=== PATIENT | female | born 1985 | race African-American/Black ===

== ENCOUNTER 2017-10-10 20:24 | Emergency (ER) | payer MEDICAID ==
[2017-10-10 20:59] LABS: BILIRUBIN,URINE NEGATIVE (NEGATIVE); PH,URINE 5.5 PH (5.0-7.5)
[2017-10-10 21:00] LABS: UA CHARGE (STRIP ONLY) YES; UR CULTURE IF IND NOT INDICATED
[2017-10-10 21:01] LABS: HCG UR QUAL POSITIVE
--- NOTE | 2017-10-10 22:15 | ED Physician Documentation ---
PD HPI FEMALE - Stated complaint Stated Complaint: ABD PAIN - Chief complaint Chief Complaint: General - History obtained from History obtained from: Patient - History of Present Illness Timing - onset: How many days ago (has had some cramping, nausea and concern for for few days to a week. Had home preg test that was positive and wants to verify it.) Timing - duration: Days Timing - details: Gradual onset, Intermittant Associated symptoms: Pelvic pain. No: Fever, Vaginal bleeding, Genital sore/ lesion, Dysuria Contributing factors: . No: Exposed to STD Recently seen: Not recently seen Review of Systems Constitutional: denies: Fever GI: reports: Nausea. denies: Vomiting, Diarrhea : reports: LMP (5 weeks ago), Missed period. denies: Dysuria, Frequency, Discharge Skin: denies: Rash, Lesions PD PAST MEDICAL HISTORY - Past Medical History Past Medical History: No - Past Surgical History Past Surgical History: No - Present Medications Home Medications: Ambulatory Orders Medication Instructions Recorded Confirmed Ondansetron HCl [Zofran] 4 mg PO Q6H PRN #20 tablet 10/10/17 Vitamin [Trinatal Rx 1] 1 each PO DAILY #90 tablet 10/10/17 - Allergies Allergies/Adverse Reactions: Allergies Allergy/AdvReac Type Severity Reaction Status Date / Time No Known Drug Allergies Allergy Verified 10/10/17 20:32 - Social History Does the pt smoke?: No Smoking Status: Never smoker Does the pt drink ETOH?: No Does the pt have substance abuse?: No - Immunizations Immunizations are current?: No Immunizations: TDAP >10years/unknown - POLST Patient has POLST: No PD ED PE NORMAL - Vitals Vital signs reviewed: Yes - General General: Alert and oriented X 3, No acute distress, Well developed/nourished - HEENT HEENT: Pharynx benign - Neck Neck: Supple, no meningeal sign, No adenopathy - Cardiac Cardiac: RRR, No murmur - Respiratory Respiratory: Clear bilaterally - Abdomen Abdomen: Normal bowel sounds, Soft, Non tender, Non distended - Female Female : Deferred, Other (bedside U/S showed IUP gestational sac at age 5 weeks. ) Results - Vitals Vitals: Oxygen O2 Source Room air - Labs Labs: Laboratory Tests 10/10/17 20:45 Urine Color YELLOW Urine Clarity CLEAR Urine pH 5.5 Ur Specific [place] >=1.030 H Urine Protein NEGATIVE Urine Glucose (UA) NEGATIVE Urine Ketones TRACE Urine Occult Blood NEGATIVE Urine Nitrite NEGATIVE Urine Bilirubin NEGATIVE Urine Urobilinogen 0.2 (NORMAL) Ur Leukocyte Esterase NEGATIVE Ur Microscopic Review NOT INDICATED Urine Culture Comments NOT INDICATED Urine HCG, Qual POSITIVE PD MEDICAL DECISION MAKING - ED course Complexity details: reviewed results, considered differential (minimal lower cramping and mainly wanting to verify . IUP seen on bedside U/S c/w dates of 5 weeks. ), d/w patient Departure - Departure Disposition: Home, Self Care Clinical Impression: Early stage of , with abdominal cramping of lower quadrant, antepartum Condition: Stable Record reviewed to determine appropriate education?: Yes Instructions: ED Preg Established Normal Sxs Follow-Up: Mary Asencio, [Provider Admit Priv/Credential] - Prescriptions: Ondansetron HCl [Zofran] 4 mg PO Q6H PRN #20 tablet PRN Reason: Nausea / Vomiting Vitamin [Trinatal Rx 1] 1 each PO DAILY #90 tablet Comments: Drink lots of fluids. Start a vitamin daily. Tylenol is okay in throughout the whole and can be used every 4 hours if needed for pains or cramps. In early ibuprofen is also okay and can be used for pains or cramps. Ondansetron if needed if you develop nausea. Call the OB clinic next week for an appointment in the next few weeks. Return if worsening pain, vaginal bleeding, fevers, other concerns. Right now your test is positive and it looks like an early in the uterus consistent with about 5 weeks though that could be a slight variation around that at this point in . Discharge Date/Time: 10/10/17 22:45
[2017-10-10] MEDS ORDERED: ACETAMINOPHEN 325 MG TABLET PO STA (22:32)
[2017-10-10 22:46] VITALS: BP 125/75
[2017-10-10] MEDS ORDERED: ACETAMINOPHEN 325 MG TABLET PO ONE (22:46)
== END 2017-10-10 22:45 | disposition home or self-care (01) ==
LOC: ED 20:24
DX: O26.891 Other specified pregnancy related conditions, first trimester (principal); R10.30 Lower abdominal pain, unspecified; Z3A.01 Less than 8 weeks gestation of pregnancy
CPT/HCPCS: 81003; 81025; 99283; A9270; 81001; 87086

== ENCOUNTER 2017-10-30 10:57 | Emergency (ER) | payer MEDICAID ==
[2017-10-30] MEDS ORDERED: ACETAMINOPHEN 325 MG TABLET PO STA (11:38)
[2017-10-30] MEDS ORDERED: FAMOTIDINE 20 MG TABLET PO STA (11:38)
[2017-10-30 11:41] LABS: UA w/ MICROSCOPIC CHARGE YES
[2017-10-30 11:42] LABS: BILIRUBIN,URINE NEGATIVE (NEGATIVE); HCG UR QUAL POSITIVE; WBC,URINE 0-3 /HPF (0-5)
[2017-10-30 11:43] LABS: UR CULTURE IF IND NOT INDICATED
--- NOTE | 2017-10-30 11:43 | ED Physician Documentation ---
History of Present Illness - Stated complaint Stated Complaint: UNABLE TO EAT/12WKS - Chief complaint Chief Complaint: Abd Pain - Additonal information Additional information: hx from pt LMP approx 11 but irreg she thinks she might be approx 12 weeks along no care yet - will be seen at [facility] 11/19 not taking prenatals homeless - staying with her mother for the time to ER with upper epigastric pain and diff eating 2/2 same and also suprapubic cramping, no bleeding or dicharge no fever NVD Review of Systems Constitutional: denies: Fever Cardiac: denies: Chest pain / pressure Respiratory: denies: Dyspnea GI: reports: Abdominal Pain. denies: Nausea, Vomiting, Diarrhea : reports: Now EGA. denies: Discharge, Vaginal bleeding PD PAST MEDICAL HISTORY - Past Surgical History Past Surgical History: No - Present Medications Home Medications: Ambulatory Orders Medication Instructions Recorded Confirmed Ondansetron HCl [Zofran] 4 mg PO Q6H PRN #20 tablet 10/10/17 10/30/17 Vitamin [Trinatal Rx 1] 1 each PO DAILY #90 tablet 10/10/17 10/30/17 Famotidine [Pepcid] 20 mg PO BID PRN #20 tablet 10/30/17 Pnv95/Ferrous Fumarate/FA 1 each PO DAILY #30 tablet 10/30/17 [Prenavite Tablet] - Allergies Allergies/Adverse Reactions: Allergies Allergy/AdvReac Type Severity Reaction Status Date / Time No Known Drug Allergies Allergy Verified 10/10/17 20:32 - Social History Does the pt smoke?: No Smoking Status: Never smoker Does the pt drink ETOH?: No Does the pt have substance abuse?: No - Immunizations Immunizations are current?: No Immunizations: TDAP >10years/unknown - POLST Patient has POLST: No PD ED PE NORMAL - Vitals Vital signs reviewed: Yes - General General: Alert and oriented X 3 - HEENT HEENT: PERRL - Neck Neck: Supple, no meningeal sign - Cardiac Cardiac: RRR - Respiratory Respiratory: No respiratory distress, Clear bilaterally - Abdomen Abdomen: Soft, Other (TTP mid epigastric, no RUQ pain neg murphys, TTP suprapubic and uterus feels nearly to umbilicus) Results - Vitals Vitals: Vital Signs - 24 hr 12/21/17 12/21/17 12/21/17 10:59 12:13 13:55 Temperature 37.0 C 36.8 C Heart Rate 79 60 73 Respiratory 17 16 16 Rate Blood Pressure 119/72 121/74 130/64 O2 Saturation 100 100 100 10/30/17 15:10 Temperature 36.7 C Heart Rate 79 Respiratory 18 Rate Blood Pressure 124/73 O2 Saturation 100 Oxygen O2 Source Room air - Labs Labs: Laboratory Tests 10/30/17 10/30/17 10/30/17 11:15 12:03 12:03 WBC 7.9 RBC 4.04 L Hgb 13.0 Hct 37.7 MCV 93.3 MCH 32.1 H MCHC 34.5 RDW 12.8 Plt Count 232 MPV 7.5 L Neut # 6.2 Lymph # 1.4 L [place] # 0.3 Eos # 0.0 Baso # 0.1 Absolute Nucleated RBC 0.00 Nucleated RBC % 0.0 Sodium 134 L Potassium 3.5 Chloride 104 Carbon Dioxide 24 Anion Gap 6.0 BUN 10 Creatinine 0.7 Estimated GFR (MDRD) 118 Glucose 88 Calcium 9.3 Total Bilirubin 1.4 H AST 17 ALT 13 Alkaline Phosphatase 22 L Total Protein 7.5 Albumin 4.3 Globulin 3.2 Albumin/Globulin Ratio 1.3 Lipase 16 L Urine Color DARK YELLOW Urine Clarity CLEAR Urine pH 6.0 Ur Specific [place] >=1.030 H Urine Protein 30 H Urine Glucose (UA) NEGATIVE Urine Ketones 15 H Urine Occult Blood NEGATIVE Urine Nitrite NEGATIVE Urine Bilirubin NEGATIVE Urine Urobilinogen 0.2 (NORMAL) Ur Leukocyte Esterase NEGATIVE Urine RBC 0-5 Urine WBC 0-3 Ur Squamous Epith Cells MOD Squamous H Urine Bacteria Few Urine Mucus Marked Strands Ur Microscopic Review INDICATED Urine Culture Comments NOT INDICATED Urine HCG, Qual POSITIVE - Rads (name of study) OB sono Radiology: See rad report (single viable IUP [id number] by CRL, 4.9 cm R ovrian cyst s torsion, small leiyomas, no FF) PD MEDICAL DECISION MAKING - ED course ED course: bili noted = pt has no RUQ pain no RUQ TTP neg murphys, serial abd exams still no ruq pain, sx improved with pepcid and pt ate a sandwish pt seen by SW as well UA high SG and + ketones gave 2 L NS pt declines a pelvic exam, just wanted the sono, denies bleeding and dc, will add on GC chlamydia to urine Departure - Departure Disposition: 01 Home, Self Care Clinical Impression: Gastritis Qualifiers: Gastritis type: unspecified gastritis Chronicity: acute Gastritis bleeding: without bleeding Qualified Code(s): K29.00 - Acute gastritis without bleeding Ovarian cyst Qualifiers: Laterality: right Qualified Code(s): N83.201 - Unspecified ovarian cyst, right side Qualifiers: Weeks of gestation: less than 8 weeks Qualified Code(s): Z3A.01 - Less than 8 weeks gestation of Condition: Good Instructions: ED Cyst Ovarian, ED Care, ED PUD Vs Gastritis Prescriptions: Famotidine [Pepcid] 20 mg PO BID PRN #20 tablet PRN Reason: stomach pain Pnv95/Ferrous Fumarate/FA [Prenavite Tablet] 1 each PO DAILY #30 tablet Comments: Your are 7 weeks Your due date is June 18 2018 The ultrasound showed a large ovarian cyst on the right side and some fibroids which are likely causing some of your pain. The cyst is big enough to potentially cause poor blood flow to the ovary so if your pain suddenly gets worse, come back to the ER The upper abdominal pain may be excess stomach acid which is common on - your exam does not suggest a gallbladder problem. Take the vitamins every day and the pepcid as needed, follow up with OB Nov 19 as scheduled, return if worse Discharge Date/Time: 10/30/17 15:20
[2017-10-30] MEDS ORDERED: SODIUM CHLORIDE 0.9% 2,000 ML IV ONE (11:46)
[2017-10-30 12:13] LABS: BASOPHILS # (AUTO) 0.1 10^3/uL (0.0-0.1); BASOPHILS % (AUTO) 0.7 %; EOSINOPHILS % (AUTO) 0.2 %; HCT - HEMATOCRIT 37.7 % (37.0-47.0); LYMPHOCYTES # (AUTO) 1.4 10^3/uL (1.5-3.5); MEAN CORPUSCULAR HEMOGLOBIN 32.1 pg (27.0-31.0); MEAN CORPUSCULAR HGB CONC 34.5 g/dL (32.0-36.0); MEAN CORPUSCULAR VOLUME 93.3 fL (81.0-99.0); MEAN PLATELET VOLUME 7.5 fL (7.9-10.8); MONOCYTES # (AUTO) 0.3 10^3/uL (0.0-1.0); MONOCYTES % (AUTO) 3.4 %; NEUTROPHILS # (AUTO) 6.2 10^3/uL (1.5-6.6); NEUTROPHILS % (AUTO) 77.7 %; RED BLOOD COUNT 4.04 10^6/uL (4.20-5.40); RED CELL DISTRIBUTION WIDTH 12.8 % (12.0-15.0); UNCORRECTED WHITE BLOOD COUNT 7.9 x10^3/uL; WHITE BLOOD COUNT 7.9 x10^3/uL (4.8-10.8)
[2017-10-30 12:24] LABS: ALBUMIN/GLOBULIN RATIO 1.3 (1.0-2.2); BILIRUBIN,TOTAL 1.4 mg/dL (0.2-1.0); CALCIUM 9.3 mg/dL (8.5-10.3); CREATININE 0.7 mg/dL (0.4-1.0); POTASSIUM 3.5 mmol/L (3.5-5.0); TOTAL PROTEIN 7.5 g/dL (6.7-8.2)
[2017-10-30 15:11] VITALS: BP 124/73
--- NOTE | 2017-11-01 15:29 | Ultrasound Report ---
FIRST TRIMESTER OB ULTRASOUND: 10/30/2017 CLINICAL INDICATION: Pelvic pain, approximately 12 weeks by LMP dating. TECHNIQUE: Real-time scanning was performed with customer service representative static images obtained. LAST MENSTRUAL PERIOD --- Clinical Age --- US Age 7 weeks 0 days EFW [place] --- EFW% [place] --- Heart Rate 144 bpm EDC --- US EDC 06/15/2018 BPD [place] --- HC [place] --- AC [place] --- FL [place] --- Presentation --- Placental Location --- Cervical Length --- Amniotic Fluid --- FINDINGS: There is a single viable intrauterine gestation. By crown rump length , it measures 7 weeks 0 days. The yolk sac is visualized. The gestational sac appears unremarkable. There are two hypoechoic leiomyomas noted in the myometrium, measuring 1.8 cm and 1.5 cm. The right ovary measures 5.7 x 4.6 x 3.8 cm, and contains a 4.9 cm cyst. Normal flow was seen to the surrounding ovarian tissue. The left ovary measures 3.0 x 2.5 x 2.2 cm, and is unremarkable. No free fluid is present. IMPRESSION: Single viable intrauterine gestation, measuring 7 weeks 0 days by crown rump length. Small intramural leiomyomas. A 4.9 cm right ovarian cyst, without evidence of torsion. TD: 10/30/2017 17:43 MTDD
== END 2017-10-30 15:20 | disposition home or self-care (01) ==
LOC: ED 10:57
DX: O99.611 Diseases of the digestive system complicating pregnancy, first trimester (principal); K29.00 Acute gastritis without bleeding; O34.81 Maternal care for other abnormalities of pelvic organs, first trimester; N83.201 Unspecified ovarian cyst, right side; Z3A.01 Less than 8 weeks gestation of pregnancy
CPT/HCPCS: 36415; 76801; 80053; 81001; 81025; 83690; 85025; 87491; 87591; 99283; A9270; 81003; 87086

== ENCOUNTER 2017-12-24 12:16 | Outpatient (CLI) | payer MEDICAID | END 2017-12-24 12:17 | disposition critical access hospital (66) | LOC: EMS 12:16 | PROVIDERS: ATTEND Surgery | DX: O99.89 Other specified diseases and conditions complicating pregnancy, childbirth and the puerperium (principal); R46.89 Other symptoms and signs involving appearance and behavior | CPT/HCPCS: A0425; A0429 ==

== ENCOUNTER 2017-12-24 12:31 | Emergency (ER) | payer MEDICAID ==
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
[2017-12-24 13:14] LABS: BASOPHILS # (AUTO) 0.1 10^3/uL (0.0-0.1); BASOPHILS % (AUTO) 0.6 %; EOSINOPHILS # (AUTO) 0.1 10^3/uL (0.0-0.7); EOSINOPHILS % (AUTO) 0.7 %; HGB - HEMOGLOBIN 13.2 g/dL (12.0-16.0); LYMPHOCYTES # (AUTO) 1.9 10^3/uL (1.5-3.5); LYMPHOCYTES % (AUTO) 22.3 %; MEAN CORPUSCULAR HEMOGLOBIN 32.2 pg (27.0-31.0); MEAN CORPUSCULAR HGB CONC 34.7 g/dL (32.0-36.0); MEAN CORPUSCULAR VOLUME 92.6 fL (81.0-99.0); MEAN PLATELET VOLUME 7.5 fL (7.9-10.8); MONOCYTES # (AUTO) 0.5 10^3/uL (0.0-1.0); MONOCYTES % (AUTO) 5.4 %; PLT - PLATELET COUNT 195 10^3/uL (130-450); RED CELL DISTRIBUTION WIDTH 13.3 % (12.0-15.0); WHITE BLOOD COUNT 8.5 x10^3/uL (4.8-10.8)
[2017-12-24 13:16] LABS: MUDS CUTOFF CONCENTRATIONS CUTOFF CONC BELOW:
[2017-12-24 13:20] LABS: BILIRUBIN,URINE NEGATIVE (NEGATIVE); GLUCOSE, URINE (UA) NEGATIVE (NEGATIVE); KETONES,URINE (UA) TRACE mg/dL (NEGATIVE); LEUKOCYTE ESTERASE, URINE NEGATIVE (NEGATIVE); NITRITE,URINE NEGATIVE (NEGATIVE); OCCULT BLOOD,URINE NEGATIVE (NEGATIVE); PROTEIN,URINE TRACE mg/dL (NEGATIVE); UROBILINOGEN,URINE 0.2 (NORMAL) E.U./dL (NORMAL)
[2017-12-24 13:21] LABS: CLARITY,URINE CLEAR (CLEAR)
[2017-12-24 13:29] LABS: AMPHETAMINE SCREEN,URINE NEGATIVE (NEGATIVE); BENZODIAZEPINES SCREEN, URINE NEGATIVE (NEGATIVE); COCAINE SCREEN URINE NEGATIVE (NEGATIVE); METHADONE SCREEN, URINE NEGATIVE (NEGATIVE); METHAMPHETAMINES SCREEN, URINE NEGATIVE (NEGATIVE); OPIATE SCREEN, URINE NEGATIVE (NEGATIVE); OXYCODONE SCREEN, URINE NEGATIVE (NEGATIVE); PROPOXYPHENE SCREEN, URINE NEGATIVE (NEGATIVE); TRICYCLIC ANTIDEPRESSANT,URINE NEGATIVE (NEGATIVE)
[2017-12-24 13:38] LABS: ALBUMIN 3.8 g/dL (3.2-5.5); ALBUMIN/GLOBULIN RATIO 1.1 (1.0-2.2); ALKALINE PHOSPHATASE 29 IU/L (42-121); ALT ALANINE AMINOTRANSFERASE 13 IU/L (10-60); AST ASPARTATE AMINOTRANSFERASE 17 IU/L (10-42); BILIRUBIN,TOTAL 0.5 mg/dL (0.2-1.0); BUN - BLOOD UREA NITROGEN 11 mg/dL (6-20); CALCIUM 9.1 mg/dL (8.5-10.3); CARBON DIOXIDE - CO2 20 mmol/L (21-32); CHLORIDE 108 mmol/L (101-111); CREATININE 0.5 mg/dL (0.4-1.0); GFR - MDRD 174 (>89); GLUCOSE 93 mg/dL (70-100); LIPASE 11 U/L (22-51); SODIUM 133 mmol/L (135-145); TOTAL PROTEIN 7.2 g/dL (6.7-8.2)
[2017-12-24 13:39] LABS: ACETAMINOPHEN < 10 ug/mL (10-30); SALICYLATE < 6.0 mg/dL
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
--- NOTE | 2017-12-24 23:49 | TELEPSYCH PHYS NOTE ---
Telepsych Note - CHIEF COMPLAINT/HX OF PRESENT ILLNESS Cheif Complaint and History of Present Illness: Chief Complaint: "I was sent here for an evaluation." HPI: The patient is a 32-year-old -J[place]ican female with a history of Schizoaffective Disorder. She is also 4 months . She was brought to the hospital yesterday after making suicidal statements and homicidal statements toward her mother. The patient was referred for admission, but she is still awaiting placement. Psychiatry was consulted to determine if inpatient treatment was still necessary. When interviewed, the patient was hyperverbal, distracted, and disorganized. She had to be redirected numerous times to answer direct questions. The patient believes that her mother is conspiring against her despite any evidence. She denied auditory, visual, or tactile hallucinations as well as suicidal thoughts. She also refused medication. When offered numerous times by the psychiatrist. She stated that she did not be medication because she "prayed." - SI/HI/SELF HARM SI/HI/SELF HARM (CURRENT OR HISTORY OF):: HI SI/HI/Self Harm Text (Current or History of):: toward mother - VIOLENCE/LEGAL/COLLATERAL Violence - Legal - Collateral: Violence: none Legal: Its a long story and not a good one. Collateral: mother is concerned for her safety if the patient is released - PSYCHIATRIC HX/TREATMENT HX Psychiatric: Bipolar disorder, Schizophrenia - MEDICAL HX Does the pt have a hx of MRSA?: No Neurological History: None Cardiovascular: None Respiratory: None Endocrine/Autoimmune: None Is Patient ?: Yes PMH Other: : Pt denied having any medical issues, h/o sz or head injuries. She is reported to be 15weeks . - HOME MEDICATIONS Home Meds (as last confirmed): vitamins - ALLERGIES Allergies (as last confirmed): Allergies Allergy/AdvReac Type Severity Reaction Status Date / Time No Known Drug Allergies Allergy Verified 12/24/17 12:36 - FAMILY PSYCH/SUICIDE/SOCIAL HX-MENTAL Family - Suicide - Social Hx and Mental Status Exam: Family Psychiatric History: none Social History: lives with mother, bro, and 18 yo Employment: unemployed Education: 11th , in GED classes Stressors: see above History: none Abuse: none Legal History: none Mental Status Examination: Attitude and behavior: cooperative Speech: wnl Affect and mood: sad affect and mood Association and thought processes: disorganized Thought content: + paranoid delusions, no SI, + HI Perception: no hallucinations Sensorium, memory, and orientation: AAOx3 Intellectual functioning: average Insight and judgment: poor - PATIENT PROBLEM LIST (1) Schizoaffective disorder, bipolar type Impression: The patient is psychotic with poor insight and refusing meds. Inpatient care is appropriate. - TREATMENT/PHARMACOLOGICAL RECOMMENDATION Treatment - Pharmacological - Therapy Recommendations: Treatment Recommendations: Start Haldol 2 mg PO BID. Continue bed search. Pharmacological: Start Haldol 2 mg PO BID Therapy: n/a Level of Care: inpatient (involuntary) - TIME SPENT & PROVIDER LOCATION Telepsych consultation conducted via videoconferencing: Yes List names and roles of persons who participated in consult: Jose Cruz Roldan MD Telepsych Provider Location: [place] Time Telepsych consult began: 01:33 Time Telepsych consult completed: 01:50
[2017-12-25] MEDS ORDERED: OLANZapine ODT 5 MG TABLET TL STA (09:27)
--- NOTE | 2017-12-25 11:50 | ED Physician Documentation ---
ED Addendum - Addendum Addendum: Patient became agitated, yelling. Responding to auditory hallucinations. Reviewed telepsych notes and given zyprexa 5mg PO. Calmed the patient well.
--- NOTE | 2017-12-25 12:43 | ED Physician Documentation ---
ED Addendum - Addendum Addendum: 12/25/17 12:42 The patient remains stable in the ER being evaluated by Michel COUCH. There is seeking placement still at this time. Tell a psych consult done last night is on the chart. 1 of the psychiatric facilities asked that we get an OB exam. I talked with Dr. Tinsley who is on for [facility]ERSON[facility] ADVIS[facility] who will come and see the patient in the ER. He directs some regular tests for me to order. Yesterday the psychiatric facility had requested a OB ultrasound which was done and normal. There are no requesting an OB exam and we will try to fulfill that. The patient is not having any abdominal pain, vaginal bleeding or spotting. The ultrasound yesterday was normal.
[2017-12-25 13:53] LABS: ALBUMIN 3.4 g/dL (3.2-5.5); ALBUMIN/GLOBULIN RATIO 1.1 (1.0-2.2); BILIRUBIN,TOTAL 0.5 mg/dL (0.2-1.0); CALCIUM 9.3 mg/dL (8.5-10.3); CREATININE 0.5 mg/dL (0.4-1.0); TOTAL PROTEIN 6.5 g/dL (6.7-8.2)
--- NOTE | 2017-12-25 14:21 | Ultrasound Report ---
LIMITED OB ULTRASOUND: 12/24/2017 CLINICAL INDICATION: , check baby, cramping. COMPARISON: 10/30/2017. TECHNIQUE: Real-time scanning was performed with food service sales representatives static images obtained. LAST MENSTRUAL PERIOD 09/11/2017 CLINICAL AGE 14 weeks 6 days US AGE 15 weeks 3 days EFW HADLOCK 124 grams EFW% HADLOCK 77% HEART RATE 159 bpm EDC 06/18/2018 US EDC 06/14/2018 BPD HADLOCK 15 weeks 4 days; Mean mm 30.3 HC HADLOCK 15 weeks 4 days; Mean mm 113.8 AC HADLOCK 15 weeks 4 days; Mean mm 94.8 FL HADLOCK 15 weeks 1 day; Mean mm 17.5 PRESENTATION variable PLACENTAL LOCATION posterior CERVICAL LENGTH TA 3.1 cm AMNIOTIC FLUID subjectively normal - MVP 3.6 cm FINDINGS There is a single viable intrauterine gestation, in variable position. heart rate is 159 BPM. The placenta is posterior. The gestational sac is regular. By size, the fetus measures 15 weeks 3 days (14 weeks 6 days by previous sonogram). Amniotic fluid volume is subjectively normal, with a deepest pocket of 3.6 cm. Two small leiomyomas are noted in the uterus, fundally measuring 3.1 cm, right lateral measuring 1.9 cm. A right ovarian corpus luteum is present. No free fluid is seen. IMPRESSION: SINGLE VIABLE INTRAUTERINE GESTATION, WITH EXPECTED GROWTH FROM PREVIOUS SONOGRAM. NO EVIDENCE OF PERIGESTATIONAL HEMORRHAGE. TD: 12/24/2017 15:36 MTDD
--- NOTE | 2017-12-25 16:25 | PROVIDER PROGRESS NOTE ---
Subjective - Prog Note Date Prog Note Date: 12/25/17 Prog Note Time: 15:00 - Subjective Pt reports feeling: No change (Ms. Linda Prabhakar Is a 32-year-old 2 para 1 -Nigerian woman who is being evaluated for suicidal and violent ideation. She had unintentionally become and is currently at 15 weeks gestation today. She has no history of UTI symptoms, vaginal discharge, abdominal pain or bleeding. She receives her gynecologic care and intends to deliver at [facility]. I explained that the purpose of my evaluation was to determine if it was safe for her to be transported to a psychiatric facility. ) Objective - Vital Signs/Intake & Output Intake & Output: Intake & Output 12/22/17 12/23/17 12/24/17 12/25/17 23:59 23:59 23:59 23:59 Intake Total 750 Balance 750 - Lab Results Fish Bones: 12/24/17 13:05 12/25/17 13:02 Other Labs: Lab Results x24hrs 12/25/17 Range/Units 13:02 Sodium 136 (135-145) mmol/L Potassium 4.0 (3.5-5.0) mmol/L Chloride 103 (101-111) mmol/L Carbon Dioxide 23 (21-32) mmol/L Anion Gap 10.0 (6-13) BUN 9 (6-20) mg/dL Creatinine 0.5 (0.4-1.0) mg/dL Estimated GFR (MDRD) 174 (>89) Glucose 83 (70-100) mg/dL Calcium 9.3 (8.5-10.3) mg/dL Total Bilirubin 0.5 (0.2-1.0) mg/dL AST 17 (10-42) IU/L ALT 13 (10-60) IU/L Alkaline Phosphatase 24 L (42-121) IU/L Total Protein 6.5 L (6.7-8.2) g/dL Albumin 3.4 (3.2-5.5) g/dL Globulin 3.1 (2.1-4.2) g/dL Albumin/Globulin Ratio 1.1 (1.0-2.2) Lipase 16 L (22-51) U/L Physical Exam - Physical Exam General: positive: Other (Patient in a near position huddled under blankets. Slow to respond to questioning) HEENT: positive: Moist mucous membranes Cardiac: positive: Regular Rate Resipratory: positive: Clear to ausultation suzanna Abdomen: positive: Other (Nontender nondistended) Female : positive: Other (Patient declines pelvic and speculum exam) Extremities: positive: No pedal edema Skin: positive: Warm and dry PSYCH: positive: Suicidal, Flat affect (Patient seems withdrawn but becomes agitated when talking about her brother and mother.Suicidal intent previously established during psychiatry interview) Assessment/Plan - Assessment/Plan Assessment: First priority is securing appropriate psychiatric care and a protected environment in which she cannot act on suicidal/violent impulses. Obstetrically she has no contraindication to transport andEstablishing appropriate inpatient psychiatric care. Potential for violence to herself and others is the greater risk to both the and mother. Plan: 1. Recommend immediate transport to suitable inpatient psychiatric facility 2. Baseline labs were drawn except for Pap and GC/chlamydia. 3. Depending on how long her psychiatric hospitalization last care can be obtained through [facility] department. If patient' s hospitalization is short-term she can either return to our offices or proceed on to [facility] where she normally obtains her women's care and does her deliveries.
[2017-12-25 17:03] VITALS: BP 101/58
[2017-12-26 13:43] LABS: HEPATITIS B SURFACE ANTIGEN NON-REACTIVE (NON-REACTIVE)
[2017-12-26 13:44] LABS: HEPATITIS C ANTIBODY NON-REACTIVE (NON-REACTIVE)
[2017-12-26 14:33] LABS: HIV AG/AB 4TH GEN NON-REACTIVE (NON-REACTIVE)
== END 2017-12-25 18:26 ==
LOC: EDUNIT# → ED 12:31
DX: O99.342 Other mental disorders complicating pregnancy, second trimester (principal); F39 Unspecified mood [affective] disorder; F32.9 Major depressive disorder, single episode, unspecified; R45.851 Suicidal ideations; R45.850 Homicidal ideations; R44.0 Auditory hallucinations; Z3A.15 15 weeks gestation of pregnancy
CPT/HCPCS: 36415; 76815; 80053; 80306; 80307; 80320; 80329; 81003; 83690; 84443; 85025; 86780; 86803; 87340; 87389; 99284; A9270; 81001; 87086; 87491; 87591

== ENCOUNTER 2017-12-25 18:30 | Outpatient (CLI) | payer MEDICAID | END 2017-12-25 18:31 | LOC: EMS 18:30 | PROVIDERS: ATTEND Surgery | DX: R46.89 Other symptoms and signs involving appearance and behavior (principal) | CPT/HCPCS: A0425; A0428 ==

== ENCOUNTER 2018-01-12 11:47 | Outpatient (CLI) | payer MEDICAID ==
[2018-01-12 15:21] LABS: MUDS CUTOFF CONCENTRATIONS CUTOFF CONC BELOW:
[2018-01-12 16:04] LABS: AMPHETAMINE SCREEN,URINE NEGATIVE (NEGATIVE); BENZODIAZEPINES SCREEN, URINE NEGATIVE (NEGATIVE); COCAINE SCREEN URINE NEGATIVE (NEGATIVE); METHADONE SCREEN, URINE NEGATIVE (NEGATIVE); METHAMPHETAMINES SCREEN, URINE NEGATIVE (NEGATIVE); OPIATE SCREEN, URINE NEGATIVE (NEGATIVE); OXYCODONE SCREEN, URINE NEGATIVE (NEGATIVE); PROPOXYPHENE SCREEN, URINE NEGATIVE (NEGATIVE); TRICYCLIC ANTIDEPRESSANT,URINE NEGATIVE (NEGATIVE)
== END 2018-01-12 11:48 | disposition home or self-care (01) ==
LOC: LAB.R 11:47
PROVIDERS: ATTEND Nurse Practitioner Obstetrics & Gynecology
DX: Z11.3 Encounter for screening for infections with a predominantly sexual mode of transmission (principal); Z36.9 Encounter for antenatal screening, unspecified
CPT/HCPCS: 80306; 87491; 87591

== ENCOUNTER 2018-01-12 12:06 | Outpatient (CLI) | payer MEDICAID ==
[2018-01-12 13:12] LABS: BILIRUBIN,URINE NEGATIVE (NEGATIVE); GLUCOSE, URINE (UA) NEGATIVE (NEGATIVE); KETONES,URINE (UA) NEGATIVE (NEGATIVE); LEUKOCYTE ESTERASE, URINE NEGATIVE (NEGATIVE); NITRITE,URINE NEGATIVE (NEGATIVE); OCCULT BLOOD,URINE NEGATIVE (NEGATIVE); PH,URINE 5.5 PH (5.0-7.5); PROTEIN,URINE NEGATIVE (NEGATIVE); UROBILINOGEN,URINE 0.2 (NORMAL) E.U./dL (NORMAL)
[2018-01-12 13:12] LABS: BASOPHILS % (AUTO) 0.5 %; EOSINOPHILS # (AUTO) 0.1 10^3/uL (0.0-0.7); EOSINOPHILS % (AUTO) 0.8 %; HGB - HEMOGLOBIN 12.9 g/dL (12.0-16.0); LYMPHOCYTES # (AUTO) 1.6 10^3/uL (1.5-3.5); LYMPHOCYTES % (AUTO) 20.3 %; MEAN CORPUSCULAR HEMOGLOBIN 32.4 pg (27.0-31.0); MEAN CORPUSCULAR HGB CONC 34.4 g/dL (32.0-36.0); MEAN CORPUSCULAR VOLUME 94.4 fL (81.0-99.0); MONOCYTES # (AUTO) 0.4 10^3/uL (0.0-1.0); MONOCYTES % (AUTO) 5.2 %; NEUTROPHILS # (AUTO) 5.8 10^3/uL (1.5-6.6); NEUTROPHILS % (AUTO) 73.2 %; PLT - PLATELET COUNT 221 10^3/uL (130-450); RED BLOOD COUNT 3.98 10^6/uL (4.20-5.40); RED CELL DISTRIBUTION WIDTH 13.5 % (12.0-15.0); WHITE BLOOD COUNT 7.9 x10^3/uL (4.8-10.8)
[2018-01-12 13:20] LABS: BACTERIA,URINE Rare /HPF (None Seen); CLARITY,URINE CLEAR (CLEAR); RBC,URINE 0-5 /HPF (0-5); SQUAMOUS EPITHELIAL CELL,UR FEW Squamous (<= Few)
[2018-01-13 13:41] LABS: HIV AG/AB 4TH GEN NON-REACTIVE (NON-REACTIVE)
[2018-01-13 16:03] LABS: HEPATITIS B SURFACE ANTIGEN NON-REACTIVE (NON-REACTIVE)
== END 2018-01-12 12:07 | disposition home or self-care (01) ==
LOC: LAB 12:06
PROVIDERS: ATTEND Nurse Practitioner Obstetrics & Gynecology
DX: Z36.9 Encounter for antenatal screening, unspecified (principal)
CPT/HCPCS: 36415; 80306; 81001; 81599; 85025; 86762; 86850; 86900; 86901; 87340; 87389; 87491; 87591

== ENCOUNTER 2018-01-26 08:00 | Outpatient (CLI) | payer MEDICAID | END 2018-01-26 08:01 | disposition home or self-care (01) | LOC: LAB.R 08:00 | PROVIDERS: ATTEND Registered Nurse | DX: R82.99 Other abnormal findings in urine (principal) | CPT/HCPCS: 87086 ==

== ENCOUNTER 2018-02-12 16:53 | Outpatient (CLI) | payer MEDICAID ==
[2018-02-12 17:24] VITALS: BP 117/67
[2018-02-12 18:33] LABS: BILIRUBIN,URINE NEGATIVE (NEGATIVE); GLUCOSE, URINE (UA) NEGATIVE (NEGATIVE); KETONES,URINE (UA) NEGATIVE (NEGATIVE); LEUKOCYTE ESTERASE, URINE NEGATIVE (NEGATIVE); NITRITE,URINE NEGATIVE (NEGATIVE); OCCULT BLOOD,URINE NEGATIVE (NEGATIVE); PH,URINE 5.5 PH (5.0-7.5); PROTEIN,URINE NEGATIVE (NEGATIVE); UROBILINOGEN,URINE 0.2 (NORMAL) E.U./dL (NORMAL)
[2018-02-12 18:45] LABS: BACTERIA,URINE None Seen /HPF (None Seen); CLARITY,URINE CLEAR (CLEAR); RBC,URINE None Seen /HPF (0-5); SQUAMOUS EPITHELIAL CELL,UR MOD Squamous (<= Few)
[2018-02-12 18:46] LABS: MUCUS,URINE Moderate Strands
== END 2018-02-12 20:00 | disposition home or self-care (01) ==
LOC: WFO 16:53 → FBP 16:58 → WFO 20:00
PROVIDERS: ATTEND Nurse Practitioner Obstetrics & Gynecology
DX: O47.03 False labor before 37 completed weeks of gestation, third trimester (principal); Z3A.22 22 weeks gestation of pregnancy
CPT/HCPCS: 81001; 87086; 99211

== ENCOUNTER 2018-02-16 12:17 | Outpatient (CLI) | payer MEDICAID ==
[2018-02-16 12:45] VITALS: BP 111/62
[2018-02-16 14:36] LABS: BILIRUBIN,URINE NEGATIVE (NEGATIVE); GLUCOSE, URINE (UA) NEGATIVE (NEGATIVE); KETONES,URINE (UA) NEGATIVE (NEGATIVE); LEUKOCYTE ESTERASE, URINE NEGATIVE (NEGATIVE); NITRITE,URINE NEGATIVE (NEGATIVE); OCCULT BLOOD,URINE NEGATIVE (NEGATIVE); PROTEIN,URINE NEGATIVE (NEGATIVE); UROBILINOGEN,URINE 0.2 (NORMAL) E.U./dL (NORMAL)
[2018-02-16 14:52] LABS: CLARITY,URINE CLEAR (CLEAR)
--- NOTE | 2018-02-17 11:10 | Ultrasound Report ---
LIMITED OB ULTRASOUND: 02/16/2018 CLINICAL INDICATION: Concern for well being, check growth. TECHNIQUE: Real-time scanning was performed with dental sales representative static images obtained. LAST MENSTRUAL PERIOD: 09/11/2017 Clinical Age: 23 weeks 0 days (LMP) US Age: 23 weeks 0 days EFW Hadlock: 534 grams EFW% Hadlock: -- Heart Rate: 150 bpm EDC: 06/18/2018 US EDC: 06/18/2018 BPD Hadlock: 22 weeks 6 days; Mean mm 55 HC Hadlock: 22 weeks 5 days; Mean mm 206 AC Hadlock: 23 weeks 0 days; Mean mm 182 FL Hadlock: 22 weeks 4 days; Mean mm 39 Presentation: cephalic Placental Location: posterior Cervical Length: 3.3 cm Amniotic Fluid: RICHIE 15.9 cm; MVP 4.7 cm FINDINGS: There is a single viable intrauterine gestation, in cephalic presentation. heart rate is 150 BPM. The placenta is posterior, without evidence of previa. Amniotic fluid volume is normal, with an RICHIE of 15.8. By size, the fetus measures 23 weeks 0 days (22 weeks 4 days by previous sonogram, 23 weeks 0 days by LMP). Posterior leiomyomas are again noted in the uterus, measuring up to 3.8 cm. A 1.2 cm right ovarian cyst is incidentally noted. The left ovary is not confidently identified, but no left adnexal mass is identified. IMPRESSION: SINGLE VIABLE INTRAUTERINE GESTATION, WITH SIZE IN KEEPING WITH LMP DATING. NORMAL RICHIE. NO EVIDENCE OF PLACENTA PREVIA. TD: 02/16/2018 16:24 [facility]
== END 2018-02-16 15:14 | disposition home or self-care (01) ==
LOC: WFO 12:17 → FBP 12:19 → WFO 15:14
PROVIDERS: ATTEND Nurse Practitioner Obstetrics & Gynecology
DX: O26.892 Other specified pregnancy related conditions, second trimester (principal); R10.9 Unspecified abdominal pain; Z3A.22 22 weeks gestation of pregnancy
CPT/HCPCS: 76815; 81001; 81003; 87086; 99213

== ENCOUNTER 2018-03-26 12:50 | Outpatient (CLI) | payer MEDICAID ==
--- NOTE | 2018-03-30 12:54 | Ultrasound Report ---
OB ULTRASOUND: 03/26/2018 CLINICAL INDICATION: anatomy. TECHNIQUE: Real-time scanning was performed with key account representative static images obtained. . LAST MENSTRUAL PERIOD: 09/11/2017 Clinical Age: 28 weeks 0 days US Age: 28 weeks 4 days EFW Hadlock: 1240 grams EFW% Hadlock: -- Heart Rate: 140 bpm EDC: 06/18/2018 US EDC: 06/14/2018 BPD Hadlock: 29 weeks 1 day; Mean mm 73 HC Hadlock: 28 weeks 5 days; Mean mm 263 AC Hadlock: 28 weeks 4 days; Mean mm 243 FL Hadlock: 28 weeks 2 days; Mean mm 53 Presentation: cephalic Placental Location: posterior Cervical Length: 5.0 cm translabial Amniotic Fluid: RICHIE 14.73 cm; subjectively normal; MVP 4.4 cm FINDINGS There is a single viable intrauterine gestation, in cephalic presentation. heart rate is 140 BPM. The placenta is posterior, without evidence of previa. Amniotic fluid volume is subjectively normal, with the deepest pocket of 4.4 cm. By size, the fetus measures 28 weeks 4 days (28 weeks 0 days by initial sonogram , uncertain LMP). ANATOMY The following anatomic structures were visualized and appear normal: The intracranial contents, including the ventricles and posterior fossa; the lips and orbits; the spine; the heart, including 4 chamber view and outflow tracts, and diaphragm; the abdominal contents, including the stomach, the bilateral kidneys, and urinary bladder, as well as a normal 3-vessel cord insertion; 4 limbs. The hands and feet are suboptimally visualized. A 2.9 cm right lateral leiomyoma is noted. No adnexal lesion or free fluid is seen. IMPRESSION: SINGLE VIABLE INTRAUTERINE GESTATION, WITH EXPECTED GROWTH FROM INITIAL SONOGRAM. SUBOPTIMAL EVALUATION OF HANDS AND FEET, DUE TO LATE DATES, BUT OTHERWISE UNREMARKABLE ANATOMIC SURVEY. TD: 03/26/2018 15:33 [facility]
== END 2018-03-26 12:51 | disposition home or self-care (01) ==
LOC: DI 12:50
PROVIDERS: ATTEND Nurse Practitioner Obstetrics & Gynecology
DX: Z36.9 Encounter for antenatal screening, unspecified (principal)
CPT/HCPCS: 76811

== ENCOUNTER 2018-05-11 11:40 | Outpatient (CLI) | payer MEDICAID ==
[2018-05-11 13:12] LABS: HGB - HEMOGLOBIN 12.8 g/dL (12.0-16.0); MEAN CORPUSCULAR HEMOGLOBIN 32.8 pg (27.0-31.0); MEAN CORPUSCULAR HGB CONC 33.9 g/dL (32.0-36.0); MEAN CORPUSCULAR VOLUME 96.8 fL (81.0-99.0); MEAN PLATELET VOLUME 7.4 fL (7.9-10.8); RED BLOOD COUNT 3.9 10^6/uL (4.20-5.40); RED CELL DISTRIBUTION WIDTH 13.3 % (12.0-15.0); WHITE BLOOD COUNT 9.7 x10^3/uL (4.8-10.8)
== END 2018-05-11 11:41 | disposition home or self-care (01) ==
LOC: LAB 11:40
PROVIDERS: ATTEND Registered Nurse
DX: Z34.90 Encounter for supervision of normal pregnancy, unspecified, unspecified trimester (principal)
CPT/HCPCS: 36415; 82950; 85027; 86850

== ENCOUNTER 2018-06-06 16:02 | Outpatient (CLI) | payer MEDICAID ==
[2018-06-06 18:50] VITALS: BP 127/78
[2018-06-06 18:50] LABS: BILIRUBIN,URINE NEGATIVE (NEGATIVE); GLUCOSE, URINE (UA) NEGATIVE (NEGATIVE); KETONES,URINE (UA) NEGATIVE (NEGATIVE); LEUKOCYTE ESTERASE, URINE NEGATIVE (NEGATIVE); NITRITE,URINE NEGATIVE (NEGATIVE); OCCULT BLOOD,URINE NEGATIVE (NEGATIVE); PROTEIN,URINE NEGATIVE (NEGATIVE); UROBILINOGEN,URINE 0.2 (NORMAL) E.U./dL (NORMAL)
[2018-06-06 18:57] LABS: AMORPHOUS SEDIMENT,UR Rare /LPF; BACTERIA,URINE None Seen /HPF (None Seen); CLARITY,URINE CLOUDY (CLEAR); RBC,URINE 0-5 /HPF (0-5); SQUAMOUS EPITHELIAL CELL,UR RARE Squamous (<= Few)
== END 2018-06-06 17:20 | disposition home or self-care (01) ==
LOC: WFO 16:02 → FBP 16:08 → WFO 17:20
PROVIDERS: ATTEND Nurse Practitioner Obstetrics & Gynecology
DX: O47.1 False labor at or after 37 completed weeks of gestation (principal); Z3A.38 38 weeks gestation of pregnancy
CPT/HCPCS: 81001; 87081; 87086; 99213

== ENCOUNTER 2018-06-17 12:19 | Inpatient (IN) | payer MEDICAID ==
[2018-06-17] MEDS ORDERED: LACTATED RINGERS 1,000 ML IV ONE (13:33)
[2018-06-17] MEDS ORDERED: SODIUM CHLORIDE FLUSH 0.9% 10 ML SYRINGE ONE (13:33)
[2018-06-17] MEDS ORDERED: SODIUM CHLORIDE FLUSH 0.9% 10 ML SYRINGE IVP PRN (13:35)
[2018-06-17] MEDS ORDERED: fentaNYL 100 MCG/2 ML VIAL IVP PRN (13:35)
[2018-06-17] MEDS: LACTATED RINGERS 1,000 ML IV SCH ×3 (13:45→21:05)
--- NOTE | 2018-06-17 13:55 | HISTORY & PHYSICAL EXAMINATION ---
Admit History - Instructions [place]/Slash: -Left hand click circles element as positive or present. -Right hand click slashes element as negative or not present. - Visit Reason Visit Reason: Contractions - : 1 Parity: 0 Premature: 0 Ectopic: 0 : 0 Care: positive: [facility] Risk/History: positive: High risk Complications This : positive: Other Smoking Status: Never smoker - Mother's Labs Mother's RH: positive: Positive GBS: positive: Group B Step Negative Meds/Allgy - Home Medications Home Medications: Ambulatory Orders Medication Instructions Recorded Confirmed Ondansetron HCl [Zofran] 4 mg PO Q6H PRN #20 tablet 10/10/17 10/30/17 Vitamin [Trinatal Rx 1] 1 each PO DAILY #90 tablet 10/10/17 10/30/17 Famotidine [Pepcid] 20 mg PO BID PRN #20 tablet 10/30/17 Pnv95/Ferrous Fumarate/FA 1 each PO DAILY #30 tablet 10/30/17 [Prenavite Tablet] - Allergies Allergies/Adverse Reactions: Allergies Allergy/AdvReac Type Severity Reaction Status Date / Time No Known Drug Allergies Allergy Verified 12/24/17 12:36 Physical - Abdominal Exam Vital Signs: Temp Pulse Resp BP Pulse Ox 36.5 C 75 20 127/75 06/17/18 12:32 06/17/18 12:32 06/17/18 12:32 06/17/18 12:32 Contraction Intensity: positive: Moderate to strong Uterine Resting Tone: positive: Soft - Monitoring Heart Rate Baseline: 150 Strip Review: positive: Category II - Presentation Presentation: positive: Vertex - Speculum Exam Speculum Exam Performed: positive: No Plan for Labor - Plan For Labor I expect patient to be DC'd or transferred within 96 hours.: Yes Plan for Labor: HPI: Linda presents today to [facility] with her mom Sarita and c/o regular contractions and leakage of clear vaginal fluid since yesterday afternoon. She si 39.6weeks gestation by L=7 wk U/S. She has been a patient of [facility] and has been in the care of the midwifery service throughout the duration of her . Her is complicated by her mental health diagnosis of psychosis. She has a hx of suicidal thoughts and hullicinations but has declined depression or thoughts of suicide throughout the duration of her . Linda is intermittently homeless. Her mother is supportive and brings her to her visits occasionally. She and her mother have a somewhat strained relationship at times as a result of Linda's psychosis. Linda as received regular care throughout the duration of her and she rides the bus to the Women's Care clinic when her mother is unable to bring her. She intermittently presents to labor and delivery with a variety of complaints and is most often easily communicated with and feels better after she receives a meal. Linda denies vaginal bleeding and reports +FM. Contractions palpate moderate-strong lasting 60-90seconds with soft resting tone. FHR baseline 150, moderate variability, + accels, intermittent variable decelerations, occasional early decelerations, and one late deceleration. Linda is unable to tolerate a cervical examination due to discomfort. She was allowed to breathe nitrous oxide and continued to feel significant discomfort and strongly declines a cervical examination. She reports an urge to have a bowel movement and feels pelvic pressure. She again declines cervical examination. She requests an epidural. Mother Sarita remains supportive at the bedside. She was scheduled for induction of labor 06/25/2018 at 41.0wks gestation. We previously reviewed the plan of care for induction. I reviewed with the patient and her mother than the patient may feel more comfortable with placement of the epidural and recommended induction of labor. Both Linda and her mother are in agreement with this plan and desire IOL at this time. Will ensure patient comfort with epidural before further intervention. scientific laboratory supervisor notified of patient admission and CPS will be notified upon further assessment and plan of care, prior to the arrival of her baby.
[2018-06-17 14:10] LABS: BASOPHILS # (AUTO) 0.1 10^3/uL (0.0-0.1); BASOPHILS % (AUTO) 0.6 %; EOSINOPHILS % (AUTO) 0.4 %; HGB - HEMOGLOBIN 12.7 g/dL (12.0-16.0); LYMPHOCYTES # (AUTO) 1.9 10^3/uL (1.5-3.5); LYMPHOCYTES % (AUTO) 18.1 %; MEAN CORPUSCULAR HEMOGLOBIN 32.6 pg (27.0-31.0); MEAN CORPUSCULAR HGB CONC 34.8 g/dL (32.0-36.0); MEAN CORPUSCULAR VOLUME 93.6 fL (81.0-99.0); MEAN PLATELET VOLUME 7.9 fL (7.9-10.8); MONOCYTES # (AUTO) 0.6 10^3/uL (0.0-1.0); MONOCYTES % (AUTO) 5.8 %; NEUTROPHILS # (AUTO) 7.8 10^3/uL (1.5-6.6); NEUTROPHILS % (AUTO) 75.1 %; PLT - PLATELET COUNT 229 10^3/uL (130-450); RED BLOOD COUNT 3.91 10^6/uL (4.20-5.40); RED CELL DISTRIBUTION WIDTH 13.2 % (12.0-15.0); WHITE BLOOD COUNT 10.4 x10^3/uL (4.8-10.8)
[2018-06-17] MEDS ORDERED: fent/BUPIV 2 MCG/0.125% 250 ML EP ONE (14:24)
[2018-06-17] MEDS ORDERED: NALOXONE 0.4 MG/ML VIAL IVP PRN (15:29)
[2018-06-17] MEDS ORDERED: LACTATED RINGERS 500 ML IV ONE (15:29)
[2018-06-17] MEDS ORDERED: METOCLOPRAMIDE 10 MG/2 ML VIAL IVP PRN (15:29)
[2018-06-17] MEDS ORDERED: fent/BUPIV 2 MCG/0.125% 250 ML EP PRN (15:29)
[2018-06-17] MEDS ORDERED: ePHEDrine 50 MG/ML VIAL IVP PRN (15:29)
[2018-06-17] MEDS ORDERED: diphenhydrAMINE INJ 50 MG/ML VIAL IVP PRN (15:29)
[2018-06-17] MEDS ORDERED: NALBUPHINE 10 MG/ML AMP IVP PRN (15:29)
[2018-06-17] MEDS ORDERED: OXYTOCIN/SODIUM CHLORIDE 500 ML IV SCH (16:00)
[2018-06-17] MEDS: ONDANSETRON 4 MG/2 ML VIAL IVP PRN ×2 (16:23→18:57)
[2018-06-17] MEDS ORDERED: SODIUM CHLORIDE FLUSH 0.9% 10 ML SYRINGE IVP SCH (17:00)
--- NOTE | 2018-06-17 17:23 | PROVIDER PROGRESS NOTE ---
Labor Progress Note - Uterine Monitoring Uterine Monitoring Mode: positive: External toco Contraction Frequency (min/apart): 2-10 Contraction Intensity: positive: Moderate to strong Uterine Resting Tone: positive: Soft - Monitoring Monitor Mode: positive: External ultrasound Heart Rate Baseline: 120 Heart Rate Variability: positive: Moderate (6-25 bmp) Accelerations: positive: Present, 15x15 Decelerations: positive: None Strip Review: positive: Category I - Vaginal Exam Dilation (in cm): 2 Effacement (%): 50 Station: -2 Cervical Position: Midposition - Labor Progress Note Labor Progress Note/Additional Text: S: Patient laying comfortable in bed with epidural. She intends to take a nap. Requests warm blanket. Denies concerns or complaints at this time. O: BP 111/70, HR 57, RR 17 FHR baseline 120s, moderate variability, + accels, no decels. Contractions palpate moderate-strong every 2-10 minutes lasting 60-90 minutes with soft resting tone Pitocin @ 1 A: 33yo @ 39.6wks gestation Psychotic disorder - unmedicated GBS neg Augmentation of labor with pitocin P: Titration of pitocin per protocol Insertion of eugene catheter Epidural in place Repeat SVE in 2 hours or sooner PRN.
--- NOTE | 2018-06-17 17:39 | PROVIDER PROGRESS NOTE ---
Subjective - Subjective Subjective: While patient sleeping comfortably with epidural I was able to have a discussion with her mother Sarita about her expectation for delivery and plan of care. Sarita states she is entirely aware of Linda's mental health diagnosis and that she and Linda have discussed Sarita having custody of the baby. I reviewed with her that there will be social workers who are active in her care plan and make assessment and plan for custody after the baby is born and they have an opportunity to meet with both Linda and her mother. Sarita states Linda has good social support at home. She also expressed that Linda's older sister Cheryl whom is and has 3 children of her own, has expressed desire to adopt and parent the baby. Sarita states Linad expresses her anger verbally and that most times her anger is directed toward her mother. She states Linda has never harmed anyone and she is not worried about her doing so. She states they are very pentecostal and that Linda was raised in the sabianist and would never be aggressive towards another person. She states that at times Linda does stay with her at her home but at other times she stays with friends. She is unsure where these friends are. Reports the DAE Krishnamurthy has his own [place] [facility] and that Linda does stay with him at times as well. She states she cannot tell Linda where to go or where to sleep because she is an adult who makes her own choices. Sarita expresses gratitude for the care being provided to her at this time and she is appreciative of any ongoing effort to ensure the safety of both Linda and her baby. Objective - Vital Signs/Intake & Output Vital Signs: Vital Signs x48h Temp Pulse Resp BP 06/17/18 12:32 36.5 C 75 20 127/75 Intake & Output: Intake & Output 06/14/18 06/15/18 06/16/18 06/17/18 23:59 23:59 23:59 23:59 Intake Total 1000 Balance 1000 - Lab Results Fish Bones: 06/17/18 13:45 Other Labs: Lab Results x24hrs 06/17/18 Range/Units 13:45 WBC 10.4 (4.8-10.8) x10^3/uL RBC 3.91 L (4.20-5.40) 10^6/uL Hgb 12.7 (12.0-16.0) g/dL Hct 36.6 L (37.0-47.0) % MCV 93.6 (81.0-99.0) fL MCH 32.6 H (27.0-31.0) pg MCHC 34.8 (32.0-36.0) g/dL RDW 13.2 (12.0-15.0) % Plt Count 229 (130-450) 10^3/uL MPV 7.9 (7.9-10.8) fL Neut # (Auto) 7.8 H (1.5-6.6) 10^3/uL Lymph # (Auto) 1.9 (1.5-3.5) 10^3/uL [place] # (Auto) 0.6 (0.0-1.0) 10^3/uL Eos # (Auto) 0.0 (0.0-0.7) 10^3/uL Baso # (Auto) 0.1 (0.0-0.1) 10^3/uL Absolute Nucleated RBC 0.00 x10^3/uL Nucleated RBC % 0.0 /100WBC
--- NOTE | 2018-06-17 19:15 | CONSULTATION NOTE ---
Referring Provider Name of Referring Provider:: Pediatrics- Dr Cheryl Arce Consult Date: 06/17/18 (Complex Psycho-social history of mother) Chief Complaint - Chief Complaint Chief Complaint: Hannah Dewitt CNM requested visit with patient early in labor History of Present Illness - Admitted From Admitted From:: [facility] - History Obtained From Exam Limitations: Purely psychosocial interview - History of Present Illness HPI Comment/Other: Linda is a 33 yo woman who presents full-term for induction of labor today to her CNM, Hannah Dewitt. She has had good care with good support from her mother, Sarita, who is well-known to me as the mother of one of my adolescent patients. Baby is healthy. Mom is GBS neg and all other infectious disease risk factors are negative. Her urine tox screens are consistently negative for drugs of abuse. Linda's medical history is most notable for psychosis, which is untreated throughout this preganancy. Socially, she is single and intermittently is homeless or stays with an aunt or her mother. She is not and has not been suicidal throughout this . She has declined psychiatric services. Social work services have not been consulted for her prenatally because they are not available to outpatient report checker patients through [facility]. However, the anticipation and discussion with Linda and Sarita has been that her baby will be placed in foster care upon discharge for appropriate social placement since mom will unlikely be able to care for the baby given her mental health condition presently. I was consulted for review of immediate post- care plan for baby. There was a previous care plan nursing staff had but neither pediatrics nor foreign language interpreter clinicians were consulted in its creation or knew about it. The plan involved the baby from mother and placing baby in a separate room immediately after and then moving mother to a different worthy. The plan was felt to be inappropriate by both myself and ZO Dewitt. ZO Dewitt wrote a new care plan, which was accepted by administration and nursing, but this acceptance was not communicated back directly to a clinician, so there was lack of clarity and understanding by nursing of what the clinicians wanted and would make sure would happen versus what they had been told would happen. History - Past Medical History Cardiovascular: reports: None Respiratory: reports: None Endocrine/Autoimmune: reports: None Psych: reports: Bipolar disorder, Schizophrenia MRSA Hx?: No - POLST Patient has POLST: No Meds/Allgy - Home Medications Home Medications: Ambulatory Orders Medication Instructions Recorded Confirmed Ondansetron HCl [Zofran] 4 mg PO Q6H PRN #20 tablet 10/10/17 10/30/17 Vitamin [Trinatal Rx 1] 1 each PO DAILY #90 tablet 10/10/17 10/30/17 Famotidine [Pepcid] 20 mg PO BID PRN #20 tablet 10/30/17 Pnv95/Ferrous Fumarate/FA 1 each PO DAILY #30 tablet 10/30/17 [Prenavite Tablet] - Allergies Allergies/Adverse Reactions: Allergies Allergy/AdvReac Type Severity Reaction Status Date / Time No Known Drug Allergies Allergy Verified 12/24/17 12:36 Exam - Vital Signs Reviewed Vital Signs: Yes Vital Signs: Vital Signs x48h Temp Pulse Resp BP 06/17/18 12:32 36.5 C 75 20 127/75 - Physical Exam General Appearance: positive: No acute distress, Alert, Other (Appropriate introduction and questions. Mother, Sarita, at bedside. Epidural has been placed and buccal induction medication. The epidural was starting to work by her report because, "her legs felt funny.") Neurologic/Psychiatric: positive: Oriented x3, Mood/affect nml, Other (good eye contact no si/hi no evidence of self-harm) Conclusion/Plan - Diagnosis Diagnosis: Mother with good care has complex psychosocial background in labor for delivery of her first baby. Inadequate social planning for baby due to limited local resources and not for lack of effort on her part or her clinicians' part. - Plan Plan: 1) Contacted Beckie James in administration by phone to clarify post- plan of care. Plan will be carried out as detailed by ZO Renate: baby will stay with mom in her room. There will be constant staff supervision 1:1 in room of dyad during this time. 2) psychiatry consultation line is [phone]. Contacting this line now for Linda and will be beneficial. There may also be other resources they can offer in terms of best care guidelines for this kind of [id number] presentation so we can better educate administration. 3) SW and CPS will be contacted once baby is born. 4) PAWI will be pediatric care for baby. I will be baby's PCM as an outpatient. - Lab Results Fish Bones: 08/08/18 13:45
--- NOTE | 2018-06-17 19:21 | PROVIDER PROGRESS NOTE ---
Labor Progress Note - Uterine Monitoring Uterine Monitoring Mode: positive: External toco Contraction Frequency (min/apart): 2-4 Contraction Intensity: positive: Moderate to strong Uterine Resting Tone: positive: Soft - Monitoring Monitor Mode: positive: External ultrasound Heart Rate Variability: positive: Moderate (6-25 bmp) Accelerations: positive: Present, 15x15 Decelerations: positive: None Strip Review: positive: Category I - Vaginal Exam Dilation (in cm): 3-4 Effacement (%): 90 Station: 0 Cervical Position: Midposition - Labor Progress Note Labor Progress Note/Additional Text: S: Patient comfortable in bed with epidural. Her mom Sarita is supportive at her bedside. Her mood is good. O: BP 131/71, T36.9. FHR baseline 130s, moderate variability, +accels, no decels. Contractions palpate moderate-firm every 2-4 minutes lasting 60-90 seconds with soft resting tone. SVE 3-4/90/0, vertex, midposition, soft. Unable to appreciate amniotic membranes in front of baby's head. ROM+ collected for confirmation of previous rupture. A: 33yo @ 39.6 wks gestation Complex social situation with untreated mental health diagnosis Category I FHR Pitocin augmentation P:Continue active management with titration of pitocin per protocol Continuous monitoring Ca catheter in place Hannah Dewitt CNM/DARELL will be immediately accessible on the unit for the duration of the labor course for assessment and care of the patient as needed. Plan of care developed and provided to all nurses and house supervisors. Patient will be in a 1:1 nursing status for the duration of her hospital stay. Will reevaluate in 2 hours or sooner PRN.
[2018-06-17 19:46] LABS: RUPTURE OF MEMBRANES PLUS POSITIVE (NEGATIVE)
--- NOTE | 2018-06-17 22:24 | PROVIDER PROGRESS NOTE ---
Labor Progress Note - Uterine Monitoring Uterine Monitoring Mode: positive: External toco Contraction Frequency (min/apart): 2-5 Contraction Intensity: positive: Moderate to strong Uterine Resting Tone: positive: Soft - Monitoring Monitor Mode: positive: External ultrasound Heart Rate Baseline: 130s Heart Rate Variability: positive: Moderate (6-25 bmp) Accelerations: positive: Present, 15x15 Decelerations: positive: None Strip Review: positive: Category I - Vaginal Exam Dilation (in cm): 4 Effacement (%): 90 Station: 0 Cervical Position: Anterior - Labor Progress Note Labor Progress Note/Additional Text: S: Pt laying comfortably on right side. Mom supportive at the bedside. She is slightly irritated by the eugene catheter in her bladder as well as the IV in her left arm. She reports she feels well taken care of by the nursing staff and will attempt to sleep. O: BP 126/75, T 38.8, HR 72 FHR baseline 130s, moderate variability, + accels, no decels Contractions q 2-5 min palpate moderate-strong lasting 60-90 seconds with soft resting tone. SVE 4/90/0, vertex, medium consistency, anterior position. Pitocin @ 6 A: 33yo @ 39.6wks gestation by L=7wk U/S Category I FHR Complex social situation secondary to unmedicated mental health disorder GBS neg SROM x 35.5 hours P: Continue active management with pitocin titrated per protocol Epidural for pain management. Continuous monitoring CPS notification upon delivery Dr. Lambert aware of patient status and plan of care. 1:1 nursing care Repeat SVE in 2 hours or sooner PRN.
[2018-06-17] MEDS: CALCIUM CARBONATE CHEW 500 MG TABLET PO SCH (22:45)
[2018-06-18] MEDS ORDERED: LIDOCAINE 1% 50 ML MDV ONE (03:31)
[2018-06-18] MEDS ORDERED: LIDOCAINE 1% 50 ML MDV TD ONE (03:34)
[2018-06-18] MEDS ORDERED: HYDROCORTISONE/PRAMOXINE 10 GM PR PRN (04:58)
[2018-06-18] MEDS ORDERED: WITCH HAZEL/GLYCERIN 1 EACH MED..PAD TOP PRN (04:58)
[2018-06-18] MEDS ORDERED: OXYTOCIN/SODIUM CHLORIDE 250 ML IV ONE (04:58)
--- NOTE | 2018-06-18 04:58 | DELIVERY NOTE ---
Delivery Note - Labor Labor: positive: Spontaneous, Augmented by oxytocin - Delivery Method Delivery Method: positive: Spontaneous vaginal delivery - Presentation Presentation: positive: Vertex, MATI - left occiput anterior - Nuchal Cord Nuchal Cord: positive: None - Amniotic Fluid Description Amniotic Fluid Description: positive: Clear - Episiotomy Type Episiotomy Type: positive: None - Laceration Laceration: positive: 2nd degree - Suture Suture Type: positive: Vicryl Suture Size: positive: 2-0 - Delivery Outcome Delivery Outcome: positive: Livebirth - : positive: Bulb syringe, Stimulated, Warmed, [place] used [place] sex: positive: Male - Cord Cord: positive: 3 vessels - Placenta Placenta: positive: Intact, Spontaneous - Estimated Blood Loss Estimated Blood Loss (in cc): 350 - Post Delivery Events Post Delivery Events: positive: No post delivery events - Delivery Comments (Free Text/Narrative) Delivery Comments (Free Text/Narrative): Labor: This 33yo @ 39.6wks gestation by L=7wk U/S presented on 06/17/18 @ 1230 in early labor. She reports leakage of clear vaginal fluid since @ 1200. Cervix was 2/80/-1, vertex. Contraction palpated moderate-strong every 4-8 min. FHR pattern demonstrated frequent baseline changes with majority of labor course with a 130 baseline in a Category I pattern throughout the duration of her labor. Epidural placed upon maternal request. She was augmented with Pitocin via IV for a max dosage of 5. Pt progressed to c/c/+2 at 0230. Pt demonstrated active and adequate pushing effort for a total third stage of 49 minutes. : Normal of a viable male weighing 9lbs 6oz. No nuchal cord. Apgars were 9 and 9 at 1 and 5 min respectively at 0319 on 06/18/2018. The pt request the baby be cleaned and dried prior to placement upon her chest. Provider held until cord pulsation had ceased, at which time it was doubly clamped and cut by CNM. Cord blood was obtained. The placenta delivered spontaneously and intact at 0329. 3VC. Pitocin administered via IV for hemostasis. EBL 350mL. Fourth stage: Uterine fundus firm and there is no excessive bleeding. The perineum, vagina, and cervix were inspected and found to have 2nd degree laceration which was repaired using 2-[address]-1 needle in standard fashion under sterile conditions. Vaginal and rectal examination following repair was done. Tissues well approximated. The patient has remained pleasant and appropriate throughout the duration of her labor and delivery. She is responding positively and appropriately to her baby and her mother Sarita is supportive at the bedside. She has no contraindications to and expresses a desire to breastfeed her baby. Baby was put to the breast with the help of CNM and pt was able to follow instructions and allow her to actively feed at her breast for 45 minutes. Family bonding well. Both mother and baby were left in stable condition. Nursing staff given instructions to remain present in the patient room at all times to monitor for any safety concerns and actively assist with latching and feeding the . CPS will be notified of the baby's promptly.
[2018-06-18] MEDS ORDERED: LACTATED RINGERS 1,000 ML IV SCH (05:00)
--- NOTE | 2018-06-18 05:33 | PROVIDER PROGRESS NOTE ---
Subjective - Subjective Subjective: CPS notified. Intake number [id number]. Objective - Vital Signs/Intake & Output Vital Signs: Vital Signs x48h Pulse BP 06/18/18 04:30 82 109/74 06/18/18 04:15 77 138/70 H 06/18/18 04:00 71 132/94 H 06/18/18 03:45 73 129/66 06/18/18 03:30 90 110/88 H Intake & Output: Intake & Output 06/15/18 06/16/18 06/17/18 06/18/18 23:59 23:59 23:59 23:59 Intake Total 1875 Output Total 600 300 Balance 1275 -300 - Lab Results Fish Bones: 06/17/18 13:45 Other Labs: Lab Results x24hrs 06/17/18 06/17/18 Range/Units 19:05 13:45 WBC 10.4 (4.8-10.8) x10^3/uL RBC 3.91 L (4.20-5.40) 10^6/uL Hgb 12.7 (12.0-16.0) g/dL Hct 36.6 L (37.0-47.0) % MCV 93.6 (81.0-99.0) fL MCH 32.6 H (27.0-31.0) pg MCHC 34.8 (32.0-36.0) g/dL RDW 13.2 (12.0-15.0) % Plt Count 229 (130-450) 10^3/uL MPV 7.9 (7.9-10.8) fL Neut # (Auto) 7.8 H (1.5-6.6) 10^3/uL Lymph # (Auto) 1.9 (1.5-3.5) 10^3/uL [place] # (Auto) 0.6 (0.0-1.0) 10^3/uL Eos # (Auto) 0.0 (0.0-0.7) 10^3/uL Baso # (Auto) 0.1 (0.0-0.1) 10^3/uL Absolute Nucleated RBC 0.00 x10^3/uL Nucleated RBC % 0.0 /100WBC Membranes Rupture POSITIVE A (NEGATIVE)
[2018-06-18] MEDS: IBUPROFEN 800 MG TABLET PO SCH ×3 (06:06→18:46)
[2018-06-18] MEDS: ACETAMINOPHEN 500 MG TABLET PO SCH ×3 (06:07→22:48)
[2018-06-18] MEDS: CALCIUM CARBONATE CHEW 500 MG TABLET PO SCH (08:31)
[2018-06-18] MEDS: DOCUSATE SODIUM 100 MG CAPSULE PO SCH ×2 (08:32→20:19)
--- NOTE | 2018-06-18 14:05 | CONSULTATION NOTE ---
DATE OF SERVICE: 06/18/2018 Physician: Raghu Lambert MD HISTORY OF PRESENT ILLNESS: I was called to see this patient because of concerns about her ability to care for the infant. Discussing with at [facility], she revealed that the patient has a history of schizophrenia with depression and anxiety. She has had difficulty with being intermittently homeless during this . She at this particular time, does not appear to be capable of taking care of her . She has been seen 12 times during her . She has done her visits in a timely fashion. She was induced yesterday evening, and delivered at roughly 3 o'clock this morning. Since delivery, the night nursing staff, observed mother the , and felt that there were concerns. She was having difficulty holding the , was concerned about smothering. She felt that the mother was not paying attention to the infant well. She felt that she was somewhat impulsive in her movements. She became very agitated following the visit with CPS. In talking with Alicia John RN, she observed that the family has somewhat difficulty standing up to the patient. The patient is a very large, roughly 05 ' 11" to 6 feet in height. Grandmother feels the baby should go home with mother, and feels that the mother should be the infant and holding the infant. She does not appear to have concerns about the patient's psychiatric issues. I did have a visit, both with her sisters Yoly Kennedy as well as Deedee Russo, and they voiced very strong concerns about her ability to care for the , the safety of the with the patient. They were also concerned about her psychiatric condition, and the fact that she was not taking any medications. They did appear to have some insight into her condition; however, my concerns are they would not be able to stand up to her, because of her physical size. When I talked to the patient, there was difficulty with poor eye contact. She did have a difficult time falling through the conversation. When asked to see the through the nursery, she did not look through the glass and looked other places, rather than at her child. She accused Hannah Dewitt of seeing her infrequently during her ; however, reviewing the chart, Hannah saw the patient 6 times, and Saman saw the patient 6 times also. I have discussed with the CPS officials, and they state that the can either go home with the mother, or with someone else designated by the court, and at this time, the sisters do not have legal standing to take the infant home. I have discussed this with the patient and she appears to comprehend it. The grandmother also appears to comprehend it, but is very angry and frustrated about it. There is a meeting set for tomorrow at 2 o'clock with CPS, at which time they will be meeting with Tammy Richardson and discussing the course of action that will be taken. Tonight, we are planning to keep the in the nursery. The patient may view the infant through the glass. Mother will be staffed one- on-one. Concerns about emergencies have been discussed, in that should she decide to leave, she will be allowed to leave AMA. Should she decide to take the , we will dial 911, but we will not put our hospital staff at risk. TD: 06/18/2018 13:51 KEVIN
[2018-06-19] MEDS: CALCIUM CARBONATE CHEW 500 MG TABLET PO SCH (01:03)
[2018-06-19] MEDS: IBUPROFEN 800 MG TABLET PO SCH ×4 (01:05→17:27)
[2018-06-19] MEDS ORDERED: HYDROcod/ACETAM 5/325 MG TABLET PO SCH (04:24)
[2018-06-19] MEDS: ACETAMINOPHEN 500 MG TABLET PO SCH ×3 (06:45→17:27)
--- NOTE | 2018-06-19 08:41 | PROVIDER PROGRESS NOTE ---
Subjective - Prog Note Date Prog Note Date: 06/18/18 Prog Note Time: 21:15 - Subjective Subjective: I was informed by OB nursing that the patient was agitated and demanding to nurse and hold the . Nursing and contact was forbidden by policy and the previous agreement made with the patient. Nursing staff felt threatened and Asia Gaviria was called. I was preparing to do emergent surgery and the patient was already in the OR room. I instructed nursing not to let the episode escalate. It was reported that the patient responded well to discussion with the Asia Gaviria and the event resolved. I will report the incident to Dr. Lambert who was familiar with the patient and relief call. Objective - Vital Signs/Intake & Output Vital Signs: Vital Signs x48h Temp Pulse Resp BP Pulse Ox 06/19/18 03:50 98.2 F 87 16 105/55 L 96 Intake & Output: Intake & Output 06/16/18 06/17/18 06/18/18 06/19/18 23:59 23:59 23:59 23:59 Intake Total 1875 Output Total 600 1500 Balance 1275 -1500 - Lab Results Fish Bones: 06/17/18 13:45
[2018-06-19 08:58] VITALS: BP 111/71
--- NOTE | 2018-06-19 08:59 | Discharge Plan ---
Discharge Plan Disposition: 01 Home, Self Care Condition: Good Diet: Regular Activity Restrictions: No Restrictions Shower Restrictions: No Driving Restrictions: No Weight Bearing: Full Weight Additional Instructions or Follow Up instructions: S: Pt very agitated this morning. She is verbally aggressive towards her mother and states she "lost it" early this morning. She is demanding to speak with "a hospital director". Her mother is at the bedside and appears more calm today than yesterday but Linda appears visibly irritated with her mother. Sister and [id number] are present and express a strong desire to parent the baby. She states she has not pumped her breastmilk because she has been too distracted to focus on pumping. She states the hospital administration is unjust and that she has rights. I repeatedly attempted to redirect the patient to focus on a productive activity such as pumping but she again declines. Perineum slightly uncomfortable. Requests oxycodone for pain management. O: Heart RRR w/o M/G/R, lungs CTAB, abdomen soft and nontender. Previously diagnosed uterine fibroids easily palpable at uterine fundus. Fundus firm at U. Bilateral LE's no edema. Perineum intact- trace edema. Light lochia rubra. A: 33yo -->P1 s/p TSVD of viable male infant Second degree laceration - intact Bottle feeding P: Discharge home today on PPD#1. Reviewed warning s/sx and when to present Discussed that patient will f/u with myself at 3 weeks for routine pp visit Will order repeat U/S for evaluation of previously diagnosed uterine fibroids at 8 week pp visit. Rx handwritten and provided for [place] 5/325 sig 1 tab PO q 8 hrs PRN pain # 5 with 0 refills. No Smoking: If you smoke, Please STOP! Call for help. Follow-up with: Hannah Dewitt CNM, DARELL [Provider Admit Priv/Credential] -
--- NOTE | 2018-06-19 09:08 | PROVIDER PROGRESS NOTE ---
Subjective - Prog Note Date Prog Note Date: 06/18/18 Prog Note Time: 21:45 - Subjective Subjective: Upon my arrival to debrief and discuss today's occurrences with the patient the patient, her mother Sarita, and her friends Patricia and April were in the room and yelling loudly. They are demanding documentation to support why she cannot breastfeed the baby. Sarita and Linda both state repeatedly that this is unjust and "not right". They state they called the mincemeat maker to give a statement about how the hospital "kidnapped my baby". They state they are calling the news to report this happening. Linda states this hospital is known for doing inappropriate things to their patients and that they are taking her baby away from her for no reason. I reviewed with the patient that anger and yelling in the situation which they are in currently are not productive. I encouraged them to be calm in a situation which is understandably difficulty to remain calm in. I suggested that Linda pump her breastmilk so that she can feed her baby. This statement triggered both the patient and her mother who both began to yell at me stating "how can you require her to do something in a time like this", and the pt states "dont fucking tell me what to do in a time like this". I expressed that this was not a requirement, but rather a suggestion for how she can help her baby in a situation which feels rather helpless. Linda then stated "Feed it Similac". I was then asked to leave the room. Objective - Vital Signs/Intake & Output Vital Signs: Vital Signs x48h Temp Pulse Resp BP Pulse Ox 06/19/18 08:49 36.6 C 118 H 20 111/71 100 06/19/18 03:50 36.8 C 87 16 105/55 L 96 Intake & Output: Intake & Output 06/16/18 06/17/18 06/18/18 06/19/18 23:59 23:59 23:59 23:59 Intake Total 1875 Output Total 600 1500 Balance 1275 -1500 - Lab Results Fish Bones: 06/17/18 13:45
[2018-06-19] MEDS: DOCUSATE SODIUM 100 MG CAPSULE PO SCH (09:10)
--- NOTE | 2018-06-19 11:29 | Discharge Plan ---
Discharge Plan Disposition: 01 Home, Self Care Condition: Good Activity Restrictions: No Restrictions Shower Restrictions: No Driving Restrictions: No Weight Bearing: Full Weight Additional Instructions or Follow Up instructions: S: Pt very agitated this morning. She is verbally aggressive towards her mother and states she "lost it" early this morning. She is demanding to speak with "a hospital director". Her mother is at the bedside and appears more calm today than yesterday but Linda appears visibly irritated with her mother. Sister and [id number] are present and express a strong desire to parent the baby. She states she has not pumped her breastmilk because she has been too distracted to focus on pumping. She states the hospital administration is unjust and that she has rights. I repeatedly attempted to redirect the patient to focus on a productive activity such as pumping but she again declines. Perineum slightly uncomfortable. Requests oxycodone for pain management. O: Heart RRR w/o M/G/R, lungs CTAB, abdomen soft and nontender. Previously diagnosed uterine fibroids easily palpable at uterine fundus. Fundus firm at U. Bilateral LE's no edema. Perineum intact- trace edema. Light lochia rubra. A: 33yo -->P1 s/p TSVD of viable male infant Second degree laceration - intact Unmedicated, severe mental health diagnosis-mental health resources previously provided. Pending [facility] referral in process. P: Discharge home today on PPD#1. Reviewed warning s/sx and when to present Discussed that patient will f/u with myself at 3 weeks for routine pp visit Will order repeat U/S for evaluation of previously diagnosed uterine fibroids at 8 week pp visit. Rx handwritten and provided for [place] 5/325 sig 1 tab PO q 8 hrs PRN pain # 5 with 0 refills. No Smoking: If you smoke, Please STOP! Call for help. Follow-up with: Hannah Dewitt CNM, DARELL [Provider Admit Priv/Credential] -
--- NOTE | 2018-06-19 11:55 | PROVIDER PROGRESS NOTE ---
Objective - Vital Signs/Intake & Output Vital Signs: Vital Signs x48h Temp Pulse Resp BP Pulse Ox 06/19/18 08:49 36.6 C 118 H 20 111/71 100 Intake & Output: Intake & Output 06/16/18 06/17/18 06/18/18 06/19/18 23:59 23:59 23:59 23:59 Intake Total 1875 Output Total 600 1500 Balance 1275 -1500 - Lab Results Fish Bones: 06/17/18 13:45 Assessment/Plan - Problem List (1) Affective psychosis Impression: Referral faxed to [facility]. Patient provided with contact information and address of [facility] with her discharge plan of care and teaching paperwork. Included are instructions that she should present Friday, Friday , or [phone] for services.
--- NOTE | 2018-06-19 18:18 | PROVIDER PROGRESS NOTE ---
Subjective - Prog Note Date Prog Note Date: 06/19/18 Prog Note Time: 18:12 - Subjective Subjective: Pt is anxious about going home. she recently had an anxiety attack about going home with out the baby. the patient has been seen the ER and was given Zyprexa. Medication was reviewed with ER physician and agrees with 10 mg dose. Rx for 5 mg po daily was given. Pt was told to make contact with her Psychiatrist for further medication and help. Objective - Vital Signs/Intake & Output Intake & Output: Intake & Output 06/16/18 06/17/18 06/18/18 06/19/18 23:59 23:59 23:59 23:59 Intake Total 1875 Output Total 600 1500 Balance 1275 -1500 - Lab Results Fish Bones: 06/17/18 13:45
[2018-06-19] MEDS ORDERED: OLANZapine ODT 5 MG TABLET TL SCH (19:00)
--- NOTE | 2018-07-03 11:04 | DISCHARGE SUMMARY ---
Physician: DARELL Yuen DATE OF ADMISSION: 06/17/2018 DATE OF DISCHARGE: 06/19/2018 DIAGNOSES ON ADMISSION 1. A 33-year-old G1, P0-0-0-0 at 39.6 weeks gestation. 2. Early labor. 3. GBS negative. 4. Psychotic disorder, unmedicated. 5. Augmentation of labor with Pitocin. DIAGNOSES ON DISCHARGE 1. A 33-year-old G1, P1-0-0-1, status post spontaneous vaginal delivery on 06/18/2018. 2. Second degree laceration. 3. Referral initiated for [facility] secondary to unmedicated psychotic disorder. BRIEF HISTORY: Patient is a patient of [facility] who presented on 06/17/2018 with complaints of uncomfortable contraction. Due to significant patient discomfort, a cervical examinati on was unable to be performed. Patient requested epidural for pain management, and due to 39.6 weeks gestation, patient was admitted for augmentation of labor. Adequate epidural anesthesia received, a nd patient's cervix was 280 -1 and vertex with an active labor pattern. She was augmented with Pitoc in via IV for a max dosage of 5. She spontaneously delivered a viable male . Apgars were 9 an d 9 at 1 and 5 minutes respectively at 0319 on 06/18/2018. ESTIMATED BLOOD LOSS: 350 mL. The patient had a second-degree laceration, which was repaired in the usual fashion under sterile conditions. HOSPITAL COURSE: Patient remained pleasant and appropriate throughout the duration of her labor and delivery. Her course has been complicated with agitated behavior, which appears to be a r esult of her unmedicated mental illness, for which she has historically refused treatment. [facility] and [facility] social workers were notified of her status and the baby was placed on an administrative hold. There was an inability to redirect the patient. She is ambulating and tolerating a regular d iet. She is urinating without difficulty, and her lochia is normal. Her pain is well controlled wit h oral medication. She will be discharged home today on day #2 with prescriptions for oxy codone and Colace. A referral has been initiated to [facility], and patient has been provided [facility] instructions and phone number to receive their services. Patient has previously diagnosed uterine fibroids which will be reevaluated by ultrasound ordered at her 8 week visit. She intends Depo-Provera for contraception. She intends to follow up aditya cash myself at [facility] in 3 weeks for a routine visit. She has been gi jaxon precautions to call if she has any worsening fevers, chills, abdominal pain, increased bleeding, or foul smelling vaginal lochia. Both her mother and her brother are present during the discharge te aching, and both they and the patient verbalized understanding and agreed to the above plan. TD: 07/03/2018 09:25
== END 2018-06-19 18:30 | disposition home or self-care (01) | DRG 775 ==
LOC: WFO 12:19 → FBP 12:20 → WFO 13:34 → FBP 13:35
PROVIDERS: ADMIT Nurse Practitioner Obstetrics & Gynecology; ATTEND Nurse Practitioner Obstetrics & Gynecology
PROC: 3E033VJ Introduction of Other Hormone into Peripheral Vein, Percutaneous Approach (ICD-10-PCS; 2018-06-17)
PROC: 10E0XZZ Delivery of Products of Conception, External Approach (ICD-10-PCS; principal; 2018-06-18)
PROC: 0KQM0ZZ Repair Perineum Muscle, Open Approach (ICD-10-PCS; 2018-06-18)
PROC: 0UQC7ZZ Repair Cervix, Via Natural or Artificial Opening (ICD-10-PCS; 2018-06-18)
PROC: 0UQGXZZ Repair Vagina, External Approach (ICD-10-PCS; 2018-06-18)
DX: O99.344 Other mental disorders complicating childbirth (principal); O71.3 Obstetric laceration of cervix; F20.9 Schizophrenia, unspecified; Z3A.39 39 weeks gestation of pregnancy; Z37.0 Single live birth; F31.9 Bipolar disorder, unspecified; Z59.0 Homelessness; O34.13 Maternal care for benign tumor of corpus uteri, third trimester; O70.1 Second degree perineal laceration during delivery; R45.1 Restlessness and agitation
CPT/HCPCS: 84112; 85025; 99213

== ENCOUNTER 2018-06-20 20:59 | Outpatient (CLI) | payer MEDICAID | END 2018-06-20 21:00 | disposition critical access hospital (66) | LOC: EMS 20:59 | PROVIDERS: ATTEND Surgery | DX: M79.89 Other specified soft tissue disorders (principal) | CPT/HCPCS: A0425; A0429; A0999 ==

== ENCOUNTER 2018-06-20 21:17 | Emergency (ER) | payer MEDICAID ==
--- NOTE | 2018-06-20 21:37 | ED Physician Documentation ---
History of Present Illness - Stated complaint Stated Complaint: POST SWELLING - Chief complaint Chief Complaint: General - History obtained from History obtained from: Patient, EMS - History of Present Illness Timing: Today (33-year-old woman with history of mental illness, recently delivered here. It was a contentious delivery and the child has been taken by CPS. She was I guess given a breast pump but it broke. She has a prescription pending at [facility] but they have to order it. She complains of both of her breasts are engorged and she would like them pumped and a new pump. I offered her Sudafed, that said she feels that the baby will be returned to her and does not want to dry up.) Review of Systems Constitutional: denies: Fever, Chills Cardiac: denies: Palpitations Respiratory: denies: Dyspnea, Cough GI: denies: Abdominal Pain PD PAST MEDICAL HISTORY - Past Medical History Cardiovascular: None Respiratory: None Endocrine/Autoimmune: None Psych: Bipolar disorder, Schizophrenia - Past Surgical History Past Surgical History: No - Present Medications Home Medications: Ambulatory Orders Medication Instructions Recorded Confirmed Ondansetron HCl [Zofran] 4 mg PO Q6H PRN #20 tablet 10/10/17 10/30/17 Vitamin [Trinatal Rx 1] 1 each PO DAILY #90 tablet 10/10/17 10/30/17 Famotidine [Pepcid] 20 mg PO BID PRN #20 tablet 10/30/17 Pnv95/Ferrous Fumarate/FA 1 each PO DAILY #30 tablet 10/30/17 [Prenavite Tablet] Breast Pump [Pump in Style 1 each ONCE #1 each 06/20/18 Advanced] - Allergies Allergies/Adverse Reactions: Allergies Allergy/AdvReac Type Severity Reaction Status Date / Time No Known Drug Allergies Allergy Verified 12/24/17 12:36 - Social History Does the pt smoke?: No Smoking Status: Never smoker Does the pt drink ETOH?: No Does the pt have substance abuse?: No - Immunizations Immunizations are current?: No Immunizations: TDAP >10years/unknown - POLST Patient has POLST: No PD ED PE NORMAL - Vitals Vital signs reviewed: Yes - General General: Alert and oriented X 3, No acute distress - Derm Derm: Normal color, Warm and dry - Neuro Neuro: Alert and oriented X 3, Normal speech - Psych Psych: Normal mood, Normal affect Results - Vitals Vitals: Vital Signs - 24 hr 06/20/18 21:20 Temperature 36.9 C Heart Rate 93 Respiratory 20 Rate Blood Pressure 129/80 O2 Saturation 100 Oxygen O2 Source Room air PD MEDICAL DECISION MAKING - ED course ED course: 33-year-old woman with breast engorgement, I asked the L&D nurse to come over and pump her breasts. - Sepsis Event Vital Signs: Vital Signs - 24 hr 06/20/18 21:20 Temperature 36.9 C Heart Rate 93 Respiratory 20 Rate Blood Pressure 129/80 O2 Saturation 100 Oxygen O2 Source Room air Departure - Departure Disposition: 01 Home, Self Care Clinical Impression: Engorgement of breasts associated with childbirth, delivered Condition: Good Record reviewed to determine appropriate education?: Yes Instructions: ED FAQs Follow-Up: Hannah Dewitt CNM, [employer] [Provider Admit Priv/Credential] - Prescriptions: Breast Pump [Pump in Style Advanced] 1 each MC ONCE #1 each
[2018-06-21 00:12] VITALS: BP 127/71
== END 2018-06-21 00:31 | disposition home or self-care (01) ==
LOC: EDUNIT# → ED 21:17
DX: O92.79 Other disorders of lactation (principal)
CPT/HCPCS: 99283

== ENCOUNTER 2018-06-23 15:30 | Emergency (ER) | payer MEDICAID ==
--- NOTE | 2018-06-23 16:52 | ED Physician Documentation ---
History of Present Illness - Stated complaint Stated Complaint: BREAST PX/CLOGGED/POST DELIVERY - Chief complaint Chief Complaint: General - History obtained from History obtained from: Patient, Friend - History of Present Illness Timing: Today - Additonal information Additional information: 33 y/o homeless female with a history of schizophrenia is 5 days post and she has breast engorgement and has lost her pump. She is still thinking she will get her baby back and wants to continue to pump. She has a mass in her left axilla that has been present for years and is now larger and firm. This does seem to decrease in size with pumping. She has an aunt that had a similar mass that required removal. Review of Systems Constitutional: denies: Fever Eyes: denies: Decreased vision Ears: denies: Ear pain Nose: denies: Congestion Throat: denies: Sore throat Cardiac: reports: Chest pain / pressure (the breasts hurt) Respiratory: denies: Dyspnea, Cough GI: denies: Abdominal Pain, Nausea, Vomiting : denies: Dysuria PD PAST MEDICAL HISTORY - Past Medical History Past Medical History: No Cardiovascular: None Respiratory: None Endocrine/Autoimmune: None Psych: Bipolar disorder, Schizophrenia - Past Surgical History Past Surgical History: No - Present Medications Home Medications: Ambulatory Orders Medication Instructions Recorded Confirmed Ondansetron HCl [Zofran] 4 mg PO Q6H PRN #20 tablet 10/10/17 10/30/17 Vitamin [Trinatal Rx 1] 1 each PO DAILY #90 tablet 10/10/17 10/30/17 Famotidine [Pepcid] 20 mg PO BID PRN #20 tablet 10/30/17 Pnv95/Ferrous Fumarate/FA 1 each PO DAILY #30 tablet 10/30/17 [Prenavite Tablet] Breast Pump [Pump in Style 1 each MC ONCE #1 each 06/20/18 Advanced] - Allergies Allergies/Adverse Reactions: Allergies Allergy/AdvReac Type Severity Reaction Status Date / Time No Known Drug Allergies Allergy Verified 06/23/18 15:48 - Social History Does the pt smoke?: No Smoking Status: Never smoker Does the pt drink ETOH?: No Does the pt have substance abuse?: No - Immunizations Immunizations are current?: No Immunizations: TDAP >10years/unknown - POLST Patient has POLST: No PD ED PE NORMAL - Vitals Vital signs reviewed: Yes (hypertensive diastolic mild) - General General: Alert and oriented X 3, No acute distress, Well developed/nourished - HEENT HEENT: Atraumatic, PERRL, EOMI - Neck Neck: Supple, no meningeal sign - Respiratory Respiratory: No respiratory distress - Derm Derm: Normal color, Warm and dry, No rash - Extremities Extremities: Other (There is a firm non-tender mass in the left axilla that is impressive in size about a baseball size and this is larger than sandeep according to the patient. There is no overlying erythema and no flucutance. The mass does seem to shrink slightly with the pumping. ) - Neuro Neuro: No motor deficit, No sensory deficit, Normal speech Eye Opening: Spontaneous Motor: Obeys Commands Verbal: Oriented GCS Score: 15 - Psych Psych: Normal mood, Normal affect Results - Vitals Vitals: Vital Signs - 24 hr 06/23/18 06/23/18 15:44 16:12 Temperature 36.6 C 36.6 C Heart Rate 88 79 Respiratory 20 18 Rate Blood Pressure 104/85 H 126/67 O2 Saturation 99 99 Oxygen O2 Source Room air PD MEDICAL DECISION MAKING - ED course Complexity details: considered differential, d/w patient, d/w family ED course: 33 y/o homeless female 5 days post is engorged and is able to pump and relieve her symptoms. She has a mass that will need further investigation and she is referred to surgery. - Sepsis Event Vital Signs: Vital Signs - 24 hr 06/23/18 06/23/18 15:44 16:12 Temperature 36.6 C 36.6 C Heart Rate 88 79 Respiratory 20 18 Rate Blood Pressure 104/85 H 126/67 O2 Saturation 99 99 Oxygen O2 Source Room air Departure - Departure Disposition: 01 Home, Self Care Clinical Impression: Engorgement of breasts associated with childbirth, delivered, Mass of left axilla Condition: Stable Instructions: ED FAQs, ED Breast Mass Uncertain Cause Follow-Up: Evon Siddiqui ARNP [Primary Care Provider] - Giovanni Arnold MD [Provider Admit Priv/Credential] -
[2018-06-23 17:01] VITALS: BP 128/68
== END 2018-06-23 17:05 | disposition home or self-care (01) ==
LOC: ED 15:30
DX: O92.79 Other disorders of lactation (principal); R22.9 Localized swelling, mass and lump, unspecified; F20.9 Schizophrenia, unspecified
CPT/HCPCS: 99283

== ENCOUNTER 2018-06-26 16:25 | Emergency (ER) | payer MEDICAID ==
--- NOTE | 2018-06-26 19:27 | ED Physician Documentation ---
PD HPI LOWER EXT INJURY - Stated complaint Stated Complaint: FEET SWOLLEN - Chief complaint Chief Complaint: General - History obtained from History obtained from: Patient - History of Present Illness PD HPI LOW EXT INJURY LOCATION: Both (she is feeling some swelling of both ankles. Denies pain nor swelling of lower legs. She is 8 days post and having some pain with breast engorgement (is pumping milk and that helps) and now few days of ankles swollen. Denies dyspnea. Mild vaginal discharge/bleeding and has been tapering.), Ankle Type of injury: No: Fall, Twist, Blunt / blow Timing - onset: How many days ago (few) Timing - duration: Days Timing - details: Gradual onset, Still present Improved by: Immobilization Worsened by: Palpating, Other (walking) Associated symptoms: Swelling (around both ankles.). No: Weakness, Numbness Contributing factors: No: Anticoagulated, Prior ortho surgery Similar symptoms before: Has not had sx before Recently seen: Other (8 days post . Child taken by protective services due to spychiatric issues, per patient and record.) Review of Systems Constitutional: reports: Fatigue. denies: Fever, Chills, Myalgias Nose: denies: Rhinorrhea / runny nose, Congestion Throat: denies: Sore throat Cardiac: reports: Chest pain / pressure (both breasts feeling full and engorged , for which she is pumping breastmilk.) Respiratory: denies: Dyspnea, Cough, Wheezing GI: denies: Nausea, Vomiting, Diarrhea PD PAST MEDICAL HISTORY - Past Medical History Past Medical History: Yes Cardiovascular: None Respiratory: None Endocrine/Autoimmune: None Psych: Bipolar disorder, Schizophrenia - Past Surgical History Past Surgical History: No - Present Medications Home Medications: Ambulatory Orders Medication Instructions Recorded Confirmed Ondansetron HCl [Zofran] 4 mg PO Q6H PRN #20 tablet 10/10/17 06/26/18 Vitamin [Trinatal Rx 1] 1 each PO DAILY #90 tablet 10/10/17 06/26/18 Famotidine [Pepcid] 20 mg PO BID PRN #20 tablet 10/30/17 06/26/18 Pnv95/Ferrous Fumarate/FA 1 each PO DAILY #30 tablet 10/30/17 06/26/18 [Prenavite Tablet] Breast Pump [Pump in Style 1 each MC ONCE #1 each 06/20/18 06/26/18 Advanced] Pnv95/Ferrous Fumarate/FA 1 each PO DAILY #60 tablet 06/26/18 [ Tablet] - Allergies Allergies/Adverse Reactions: Allergies Allergy/AdvReac Type Severity Reaction Status Date / Time No Known Drug Allergies Allergy Verified 06/23/18 15:48 - Social History Does the pt smoke?: No Smoking Status: Never smoker Does the pt drink ETOH?: No Does the pt have substance abuse?: No - Immunizations Immunizations are current?: No Immunizations: TDAP >10years/unknown - POLST Patient has POLST: No PD ED PE NORMAL - Vitals Vital signs reviewed: Yes - General General: Alert and oriented X 3, No acute distress, Well developed/nourished - HEENT HEENT: Pharynx benign - Neck Neck: Supple, no meningeal sign, No adenopathy, No JVD - Cardiac Cardiac: RRR, No murmur - Respiratory Respiratory: Clear bilaterally - Abdomen Abdomen: Soft, Non tender - Female Female : Deferred - Rectal Rectal: Deferred - Back Back: No CVA TTP - Derm Derm: Normal color, Warm and dry, No rash - Extremities Extremities: No tenderness to palpate, Normal ROM s pain, No edema, No calf tenderness / cord - Neuro Neuro: Alert and oriented X 3, No motor deficit, Normal speech Results - Vitals Vitals: Oxygen O2 Source Room air PD MEDICAL DECISION MAKING - ED course Complexity details: reviewed results, considered differential (I only really notice a faint bit of edema at the ankles. No calf tenderness. No lower leg edema. ), d/w patient - Sepsis Event Vital Signs: Oxygen O2 Source Room air Departure - Departure Disposition: 01 Home, Self Care Clinical Impression: Ankle edema, bilateral Condition: Stable Record reviewed to determine appropriate education?: Yes Instructions: ED Edema Legs Bilateral Follow-Up: Evon Siddiqui ARNP [Primary Care Provider] - Prescriptions: Pnv95/Ferrous Fumarate/FA [ Tablet] 1 each PO DAILY #60 tablet Comments: Elevate and rest her legs often. He can use some Lior wraps to them to help reduce some of the swelling. I think the swelling in your ankles more relates to the recent delivery and typically anemia that comes with it. I would have you resume your vitamins and continue them for a month or 2. Continue your other medications. Recheck if not improving over the next several days to week. Discharge Date/Time: 06/26/18 19:33
[2018-06-26 19:34] VITALS: BP 148/86
== END 2018-06-26 19:33 | disposition home or self-care (01) ==
LOC: ED 16:25
DX: R60.0 Localized edema (principal)
CPT/HCPCS: 99283

== ENCOUNTER 2022-10-14 11:25 | Outpatient (CLI) | payer MEDICAID ==
[2022-10-14 17:44] LABS: BASOPHILS # (AUTO) 0.1 10^3/uL (0.0-0.1); BASOPHILS % (AUTO) 0.9 %; EOSINOPHILS # (AUTO) 0.1 10^3/uL (0.0-0.7); EOSINOPHILS % (AUTO) 1.6 %; HCT - HEMATOCRIT 40.8 % (37.0-47.0); HGB - HEMOGLOBIN 12.8 g/dL (12.0-16.0); LYMPHOCYTES # (AUTO) 3.4 10^3/uL (1.5-3.5); MEAN CORPUSCULAR HEMOGLOBIN 27.7 pg (27.0-31.0); MEAN CORPUSCULAR HGB CONC 31.4 g/dL (32.0-36.0); MEAN CORPUSCULAR VOLUME 88.3 fL (81.0-99.0); MEAN PLATELET VOLUME 10.2 fL (7.9-10.8); MONOCYTES # (AUTO) 0.4 10^3/uL (0.0-1.0); MONOCYTES % (AUTO) 5.4 %; NEUTROPHILS # (AUTO) 3.5 10^3/uL (1.5-6.6); PLT - PLATELET COUNT 335 10^3/uL (130-450); RED BLOOD COUNT 4.62 10^6/uL (4.20-5.40); RED CELL DISTRIBUTION WIDTH 13.8 % (12.0-15.0); WHITE BLOOD COUNT 7.4 x10^3/uL (4.8-10.8)
[2022-10-14 18:19] LABS: ALBUMIN 3.8 g/dL (3.2-5.5); ALBUMIN/GLOBULIN RATIO 0.9 (1.0-2.2); ALKALINE PHOSPHATASE 53 IU/L (42-121); ALT ALANINE AMINOTRANSFERASE 21 IU/L (10-60); AST ASPARTATE AMINOTRANSFERASE 28 IU/L (10-42); BUN - BLOOD UREA NITROGEN 8 mg/dL (6-20); CALCIUM 9.5 mg/dL (8.5-10.3); CARBON DIOXIDE - CO2 24 mmol/L (21-32); CHLORIDE 104 mmol/L (101-111); CHOL/HDL RATIO 5.1 (<4.4); CHOLESTEROL 253 mg/dL; CREATININE 0.9 mg/dL (0.4-1.0); GFR - MDRD 86 (>89); GLUCOSE 104 mg/dL (70-100); HDL CHOLESTEROL 50 mg/dL; LDL CHOLESTEROL,CALCULATED 186 mg/dL; LDL/HDL RATIO 3.7 (<4.4); SODIUM 136 mmol/L (135-145); TOTAL PROTEIN 8.1 g/dL (6.7-8.2); TRIGLYCERIDES 84 mg/dL; VLDL CHOLESTEROL 17 mg/dL
[2022-10-14 18:30] LABS: THYROID STIMULATING HORMONE 1.06 uIU/mL (0.34-5.60)
[2022-10-14 18:32] LABS: FREE T4 (FREE THYROXINE) 0.71 ng/dL (0.58-1.64)
[2022-10-14 19:16] LABS: ESTIMATED AVERAGE GLUCOSE 120 mg/dL (70-100); HEMOGLOBIN A1c% 5.8 % (4.27-6.07)
== END 2022-10-14 11:26 | disposition home or self-care (01) ==
LOC: LAB.N 11:25
PROVIDERS: ATTEND Registered Nurse
DX: Z79.899 Other long term (current) drug therapy (principal)
CPT/HCPCS: 36415; 80053; 80061; 83036; 83721; 84439; 84443; 85025